=== PATIENT | male | born 1945 | race Caucasian/White ===

== ENCOUNTER → 2018-03-19 12:08 | Outpatient (CLI) | payer OTHER, SELFPAY ==
[2018-03-19 12:33] LABS: Add Manual Diff / Slide Review NO; Basophils Percent Auto 0.3 % (0-2); Hematocrit 43.8 % (41-53); Hemoglobin 14.8 g/dL (13.5-17.5); Lymphocytes Percent Auto 15.1 % (25-40); Mean Corpuscular HGB Conc 33.7 % (30-36); Mean Corpuscular Hemoglobin 29.1 PG (26-34); Mean Corpuscular Volume 86.4 fL (80-100); Monocytes Percent Auto 11.7 % (3-14); Neutrophils Absolute Auto 7700 /uL (3000-5900); Neutrophils Percent Auto 72.9 % (50-75); Platelet Count 167 X10^3/uL (150-400); Red Blood Cell Count 5.07 X10^6/uL (4.5-5.9); Red Cell Distribution Width 13.7 % (11.6-14.8); White Blood Cell Count 10.5 X10^3/uL (4.5-11.0)
[2018-03-19 12:39] LABS: INR 2.8 (0.9-1.3); Prothrombin Time 30.2 SECONDS (10.1-12.7)
[2018-03-19 12:50] LABS: Amylase 75 U/L (30-110); Cholesterol 138 mg/dL (140-199); HDL Cholesterol 77 mg/dL (40-60); LDL Cholesterol Calculated 50 mg/dL (<100); Lipase 73 U/L (23-300); Triglycerides 54 mg/dL (35-150)
[2018-03-19 13:15] LABS: Thyroid Stimulating Hormone 1.15 uIU/mL (0.47-4.68)
[2018-03-19 13:17] LABS: Prostate Specific Antigen Scrn 0.774 ng/mL (0.1-4.0)
[2018-03-19 14:03] LABS: Vitamin D 25 Hydroxy (D3) 24.6 ng/mL (30.0-100.0)
== END ==
PROVIDERS: PCP Family Medicine; Visit Provider Family Medicine
DX: R53.83 Other fatigue (principal); Z79.01 Long term (current) use of anticoagulants; Z95.2 Presence of prosthetic heart valve
CPT/HCPCS: 36415; 80061; 82150; 82306; 83690; 84403; 84443; 85025; 85610; G0103

== ENCOUNTER → 2018-04-05 13:42 | Outpatient (CLI) | payer OTHER, SELFPAY ==
--- NOTE | 2018-04-05 14:56 | PM.TREADMILL ---
Cardiac Stress Test Report Referral & Results Date Patient Seen: 04/05/18 Time Patient Seen: 14:56 Requesting provider: Carlos Arceo Indication: Dyspnea Rest ECG: Unremarkable Procedure Note: Today following both written and verbal informed consent the patient was exercised according to a standard Star protocol patient went for a total of 3 min 5 sec achieving a maximum heart rate of 146 maximum systolic blood pressure of 200. This is approximately 4.6 METS. Exercise was terminated at this point because of inability the patient to go any faster. Patient was also given Cardiolite through a previously started Hep-Lock IV by the nuclear worker technician approximately 1 minute prior to the cessation of exercise. Patient's functional aerobic impairment rated 60% of the sedentary scale so significant deconditioning There are no specific ST-T segment changes with exercise but in recovery there were some minor ST segment flattening in the lateral leads as well as lead 3. No depression was identified. Occasional PVC was identified Impression: Nonspecific ST segment changes that are not likely to be ischemic. Very limited exercise capacity Await t perfusion imaging which will be reported separately. Please note: Actual ECG tracings can be found in the PACS system.
--- NOTE | 2018-04-06 15:23 | DI.NM.S_ITS ---
DATE OF SERVICE: 04/05/2018 PROCEDURE PERFORMED: Exercise treadmill stress and rest myocardial perfusion imaging study with gating to assess ejection fraction and regional wall motion. ORDERING PROVIDER: Carlos Arceo MD INDICATIONS: The patient is a 73-year-old obese male with dyspnea and fatigue. EXERCISE TREADMILL TESTING: The patient was able to exercise for a total of 3 minutes 5 seconds on a standard Star protocol suggesting severely reduced exercise capacity with an GEOVANNA of +55%. He had an accelerated heart rate response to exercise with a resting heart rate of 106 BPM increasing to 133 BPM within 2 minutes of exercise, achieving a maximum heart rate of 146 BPM (99% of his predicted maximum heart rate). He had a mild hypertensive blood pressure response with a resting blood pressure of 122/78 increasing to a maximum of 200/90. He had no chest discomfort but stopped because of dyspnea. His resting ECG shows sinus rhythm with frequent PVCs with some nonspecific ST segment abnormalities. With exercise, he develops 1 mm to 2mm of ST depression, but this is nonspecific because of the baseline abnormalities and hypertensive blood pressure response. His PVCs appear to improve with exercise and there are no concerning arrhythmias. At 2 minutes 1 second of exercise, at a heart rate of 143 BPM, 24.3 mCi of technetium-99 Myoview was injected and the patient was imaged 15 minutes later using a gated SPECT acquisition protocol. He returned the following day and was reinjected with an additional 25.1 mCi of technetium-99 Myoview and was imaged 30 minutes later, again using a gated SPECT acquisition protocol. FINDINGS: 1. RAW DATA: There was fair myocardial tracer uptake. There clearly is significant diaphragmatic attenuation noted. The lung/heart ratio is normal at 0.35 with a normal TID ratio of 0.82. 2. QUANTITATIVE GATED SPECT: Post stress ejection fraction is estimated at 61% without any focal wall motion abnormality, and specifically, the inferior wall appears to have normal distal contractility. Resting ejection fraction is estimated at 62% with mildly increased left ventricular volumes with an end- diastolic volume of 161 mL. 3. MYOCARDIAL PERFUSION IMAGING: Post stress supine images show a fairly normal myocardial perfusion pattern except for a mild perfusion defect in the proximal to mid inferior wall extending slightly to the distal inferior wall. This defect nearly completely resolves on prone imaging, suggestive that it reflects diaphragmatic attenuation. There are no other perfusion defects. The resting images show an identical perfusion pattern without any areas of improvement. CONCLUSION: 1. Probable normal myocardial perfusion study. 2. [id number] fixed inferior perfusion defect that nearly completely resolves on prone imaging, most likely reflecting diaphragmatic attenuation artifact. Previous nontransmural infarction of the inferior wall cannot be entirely excluded, but the absence of any wall motion abnormality in this area mitigates against this. There is no evidence for any significant myocardial ischemia. 3. Normal left ventricular systolic function without focal wall motion abnormality although with mildly increased left ventricular volumes. . 4. Markedly reduced exercise capacity without angina but limiting dyspnea. He had a mild hypertensive blood pressure response to exercise. Resting PVCs resolved with stress and there were no concerning arrhythmias. Shelia Bonilla - /christiano/ doc#: [id number]/job#: [id number] dd: 04/06/2018 12:52:00 dt: 04/06/2018 14:41:00 DICTATING MD/COPIES TO: Tevin Gomez MD; Carlos Arceo MD COPIES MNE: SHAHANA HERRERA
== END ==
PROVIDERS: PCP Family Medicine; Visit Provider Family Medicine
DX: R06.00 Dyspnea, unspecified (principal); R53.83 Other fatigue; E66.9 Obesity, unspecified
CPT/HCPCS: 78452; 93016; 93017; 93018; A9502

== ENCOUNTER → 2018-04-06 09:21 | Outpatient (CLI) | payer OTHER, SELFPAY ==
--- NOTE | 2018-04-06 09:22 | DI.ECHO.S_ITS ---
[facility] +---------+ : : [address] [place] : : : : [id number] : : : : Phone: [phone] Echocardiogram Report + + :Name: MEGAN MARQUEZ Study Date: 04/06/2018 Height: 70 in : :[facility] Weight: 265 lb : : Gender: Male BSA: 2.4 m2 : :: 1945 Age: 73 yrs BP: 108/48 mmHg: :Reason For Study: SOB : : Performed By: Junie Dunne : :Referring: DREAD FRANCO : + + Interpretation Summary The left ventricle is normal in size. There is mild-moderate concentric left ventricular hypertrophy. The ejection fraction is estimated to be 55-60%. The left atrium is mildly dilated. The mitral valve appears rheumatic. There is mild mitral stenosis. There is a mechanical aortic valve. The prosthetic aortic valve is well-seated. The peak aortic velocity is 3.2 m/sec. The aortic valve mean gradient is 20 mmHg. No other echocardiographic abnormalities seen. On review of this gentleman is previous echocardiogram from August 2014 I can see that there are mild rheumatic changes to his mitral valve at that time but without stenosis. 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 The mechanical aortic valve function appears unchanged. Procedure: A two-dimensional transthoracic echocardiogram with color flow and Doppler was performed. The study quality was technically adequate. Comparison is made with the echocardiogram of 08-27-14. The heart rate ranged between 82-93 bpm during the study. Left Ventricle: The left ventricle is normal in size. There is mild-moderate concentric left ventricular hypertrophy. The ejection fraction is estimated to be 55-60%. There are no focal wall motion abnormalities. Diastolic function could not be accurately assessed due to confounding valvular disease. Right Ventricle: The right ventricle is normal in size and function. Atria: The left atrium is mildly dilated. Right atrial size is normal. The interatrial septum is intact with no evidence for an atrial septal defect. Mitral Valve: The mitral valve leaflets appear mildly thickened, but open well. There is slight calcification extending into the subvalvular apparatus. The mitral valve appears rheumatic. There is mild mitral stenosis. There is trace mitral regurgitation. Aortic Valve: The prosthetic aortic valve is well-seated. There is a mechanical aortic valve. The peak aortic velocity is 3.2 m/sec. The peak aortic velocity on the previous exam was 3.4 m/sec. The aortic valve mean gradient is 20 mmHg. No aortic regurgitation is present. Tricuspid Valve: The tricuspid valve is normal in structure and function. There is a trace or physiologic amount of tricuspid regurgitation. The right ventricular systolic pressure is estimated at 19 mmHg assuming a right atrial pressure of 3 mm Hg. Pulmonic Valve: The pulmonic valve is not well visualized. Great Vessels: The aortic root is normal size. The dimensions of the ascending aorta are normal. The IVC is of normal diameter and collapses greater than 50% with a sniff. This suggests a low right atrial pressure of 3 mm Hg. Pericardium/ Pleura There is no pericardial effusion. There is no pleural effusion. MMode/2D Measurements & Calculations LVIDd: 5.4 cm LVOT diam: 1.9 cm LVIDs: 4.0 cm Ao root diam: 3.0 cm FS: 25.4 % Aortic Jxn: 2.0 cm EPSS: 1.0 cm asc Aorta Diam: 2.6 cm IVSd: 1.1 cm LVPWd: 1.3 cm LV gu. diameter/BSA (cm/m^2): 2.3 LV sys. diameter/BSA (cm/m^2): 1.7 LA dimension: 4.7 cm RA long axis: 5.2 cm LA A2 area: 22.3 cm2 RA area: 18.5 cm2 LA A4 area: 23.3 cm2 RA vol: 56.1 ml LA length (vol): 5.8 cm RA : 23.9 ml/m2 LA vol: 76.0 ml IVC diam: 1.4 cm LA vol index: 32.3 ml/m2 RVDd major: 5.7 cm RVD1 (basal): 3.6 cm RVD2 (mid): 3.5 cm Doppler Measurements & Calculations Ao V2 max: 322.0 cm/sec LVOT Max Shalom: 91.4 cm/sec Ao V2 mean: 201.5 cm/sec LV V1 max P.3 mmHg Ao max P.5 mmHg LV V1 VTI: 17.6 cm Ao mean P.8 mmHg RODOLFO(I,D): 0.89 cm2 Ao V2 VTI: 58.1 cm RODOLFO(V,D): 0.84 cm2 sev ratio: 0.30 RODOLFO indexed to BSA (cm^2/m^2): 0.38 MV E max shalom: 129.4 cm/sec TR max shalom: 202.1 cm/sec MV A max shalom: 164.2 cm/sec TR max P.3 mmHg MV E/A: 0.79 PA V2 max: 102.3 cm/sec Lat Peak E' Shalom: 6.7 cm/sec PA V2 mean: 64.7 cm/sec E/E' lat: 19.3 PA mean P.0 mmHg MV dec time: 0.17 sec PA Accel Time: 0.11 sec MV P1/2t: 51.1 msec MV P1/2t max shalom: 129.5 cm/sec MVA(P1/2t): 4.3 cm2 Reading Physician:05:26 PM
== END ==
PROVIDERS: PCP Family Medicine; Visit Provider Family Medicine
DX: I05.0 Rheumatic mitral stenosis (principal); R06.02 Shortness of breath; Z95.2 Presence of prosthetic heart valve
CPT/HCPCS: C8929

== ENCOUNTER → 2018-04-12 07:55 | Outpatient (CLI) | payer OTHER, SELFPAY ==
[2018-04-12 09:41] LABS: BUN Creatinine Ratio 16.4 (6-22); Blood Urea Nitrogen 18 mg/dL (9-20); Calcium 9.6 mg/dL (8.4-10.2); Carbon Dioxide 32 mmol/L (22-32); Chloride 101 mmol/L (98-107); Estimated Glomerular Filt Rate > 60.0 mL/min (>60); Glucose 123 mg/dL (80-110); HEMOLYSIS < 15 (0-50); Potassium 4.8 mmol/L (3.4-5.1); Sodium 141 mmol/L (137-145)
== END ==
PROVIDERS: PCP Family Medicine; Visit Provider Family Medicine
DX: E87.1 Hypo-osmolality and hyponatremia (principal); R79.9 Abnormal finding of blood chemistry, unspecified
CPT/HCPCS: 36415; 80048

== ENCOUNTER 2018-08-05 18:52 | Emergency (ER) | payer OTHER, SELFPAY ==
[2018-08-05 18:58] VITALS: BP 102/63; PULSE 98; RESP 18; TEMP 36.7; O2SAT 95; BMI 38.0
--- NOTE | 2018-08-05 19:30 | ED.EXTPRO ---
HPI - Extremity Problem General Chief complaint: Extremity Problem,Nontraumatic Stated complaint: STATES HAS NO STRENGTH IN ANKLES OR KNEES Time Seen by Provider: 08/05/18 19:13 Source: patient and family Limitations: no limitations History of Present Illness HPI Narrative: This is a 73-year-old male who comes to the emergency department with complaint of bilateral ankle and foot pain. Patient states it has been going on for a couple weeks. Patient states that some of it feels like his Achilles tendon but on both sides. When he crosses his legs and that ankle or tendon he can feel it and it is uncomfortable. He states getting up out of the chair he feels weaker Um and it is painful in when he is trying to walk around he has to hold onto things. He states he feels in his ankle and feet and also has pain. Patient states that he has been sleeping a lot the last 2 weeks because he felt under the weather. He has not had any trauma, he has not had any falls. He does have known back issues and has been seeing Dr. Morales was. He dose to go for injections into his back this month. Patient states that this feels different. He is not having any numbness or tingling. He states he has had a change in his medications and is on trazodone and a new anti depression medication. Patient has not had any fevers, no cold cough or congestion other than feeling stuffy in the middle of the night. No chest pain or shortness of breath no nausea or vomiting and no GI or urinary symptoms. Related Data Previous Rx's Medication Instructions Recorded atorvastatin [Lipitor] 10 mg PO HS #90 tab 12/15/16 pramipexole [Mirapex] 0.125 - 0.25 mg PO HS PRN #60 tab 07/14/17 amlodipine [Norvasc] 5 mg PO QDAY #90 tab 03/27/18 dexamethasone 4 mg tablet 4 mg PO Q8H #12 tab 04/17/18 warfarin 2.5 mg tablet 2.5 mg PO SEE INSTRUCTIONS #120 tab 05/24/18 allopurinol 300 mg tablet 300 mg PO DAILY #90 tab 06/05/18 citalopram 20 mg tablet 20 mg PO DAILY #60 tab 07/10/18 terazosin 2 mg capsule 4 mg PO BEDTIME #90 cap 07/10/18 trazodone 50 mg tablet 100 mg PO BEDTIME PRN #90 tab 07/10/18 temazepam 15 mg capsule 15 mg PO BEDTIME #30 cap 07/12/18 hydrocodone 5 mg-acetaminophen 325 1 - 2 tab PO Q6HP PRN #50 tab 07/30/18 mg tablet hydrocodone-acetaminophen [[place]] 1 tab PO Q6H PRN #10 tab 08/05/18 prednisone See Label Instructions PO PER PKG 08/05/18 DIR #21 each Allergies Allergy/AdvReac Type Severity Reaction Status Date / Time azithromycin [AZITHROMYCIN] Allergy Mild RASH Verified 08/05/18 19:02 lovastatin [LOVASTATIN] Allergy Mild CAUSING Verified 08/05/18 19:02 HIM BREATHING ISSUE oxycodone [OXYCODONE] Allergy Mild RASH Verified 08/05/18 19:02 venlafaxine [VENLAFAXINE] Allergy Mild POSS HIVES Verified 08/05/18 19:02 venom-honey bee Allergy Mild SWELLING Verified 08/05/18 19:02 [BEE VENOM (HONEY BEE)] RT LEG Review of Systems Review of Systems All systems reviewed & are unremarkable except as noted in HPI and below Constitutional Denies chills, Denies fever(s), Denies malaise and Reports weakness ENT Ears, Nose, Mouth, and Throat: Denies disequilibrium Cardiovascular Denies chest pain and Denies dyspnea Respiratory Denies chest congestion, Denies cough and Denies dyspnea Gastrointestinal Gastrointestinal: Denies abdominal pain, Denies constipation, Denies fecal incontinence, Denies diarrhea, Denies nausea and Denies vomiting Genitourinary Denies urinary incontinence Musculoskeletal Reports as per HPI, Reports abnormal gait, Reports back pain (chronic), Reports arthralgias (ankle and feet), Denies joint swelling, Denies limited range of motion, Reports muscle weakness, Denies numbness, Reports stiffness and Denies tingling Integumentary/Breasts Denies rash and Denies skin ulcer Neurologic Reports abnormal gait, Denies numbness, Denies sensory deficit, Denies tingling, Denies disequilibrium and Reports weakness PFSH Medical History Aortic stenosis (Chronic 1996) Chronic back pain (Chronic) Gout (Chronic) Hayfever (Chronic) Hearing loss (Chronic 1989) Hip pain (Chronic) Hypertension (Chronic) Knee pain (Chronic) Low testosterone (Chronic) RLS (restless legs syndrome) (Chronic) Sleep apnea (Chronic 2010) Bladder tumor (Resolved 1989) Chicken pox (Resolved) Congenital heart defect (Resolved 1945) Gastric ulcer (Resolved 1987) Measles (Resolved) Mumps (Resolved) Rheumatic fever (Resolved) Surgical History Anesthesia (Resolved) History of bladder surgery (Resolved 1989) Status post cardiac surgery (Resolved 1996) Social History Smoking Status: Former smoker Exam Narrative Exam Narrative: GEN: Obese, well-appearing male, alert and oriented x 3, patient appears to be in no acute distress. HEENT: Atraumatic, pupils are equal round reactive to light. HEART: Regular rate and rhythm without murmur, clicks, rubs. Pulses are equal in lower extremities LUNGS:Lungs clear to auscultation, no wheezes, rales, crackles, chest moves symmetrically ABD:bowel sounds normal, soft, non-tender, no guarding, rebound, rigidity, no masses noted, no hepatosplenomegaly :No CVA tenderness MSCL: Non-tender to palpation, patient has full range of motion of bilateral lower extremities. He crosses his legs in the room were spontaneously on both sides and points to the Achilles tendon region is being uncomfortable. Patient does not have any significant tenderness with palpation of the Achilles tendon. He has flexion of both feet with palpation of the Achilles tendon were squeeze, the patient does not have any bony tenderness of his lower extremities or feet. There is no redness, there is no swelling, there is no other skin changes or bruising, patient has 5/5 muscle strength, he has 5/5 strength with dorsiflexion and plantar flexion. He has 2+ dorsalis pedis bilaterally. Normal sensation throughout, no muscle atrophy, muscles strength 5/5 upper and lower extremities, full range of motion. NEURO:CN 2-12 intact, sensation normal, reflexes 2/4 patellar bilaterally. heel ernst test normal Initial Vital Signs Initial Vital Signs: Vital Signs Temperature 98.1 F 08/05/18 18:58 Pulse Rate 98 H 08/05/18 18:58 Respiratory Rate 18 08/05/18 18:58 Blood Pressure 102/63 08/05/18 18:58 Pulse Oximetry 95 08/05/18 18:58 Course Orders Ordered: ED Orders 08/05/18 19:35 Complete Blood Count AUTO DIFF Stat Comprehensive Metabolic Panel Stat Creatine Kinase Stat Erythrocyte Sedimentation Rate Stat Prothrombin Time INR Stat 08/05/18 20:40 US renal complete Stat Discontinued Medications Sodium Chloride (Normal Saline 0.9%) 1,000 mls @ 1,000 mls/hr IV BOLUS ONE Stop: 08/05/18 21:39 Last Infusion: 08/05/18 22:16 Dose: 0 mls/hr Admin: 08/05/18 21:01 Dose: 1,000 mls/hr Ketorolac Tromethamine (Toradol) 15 mg IV NOW ONE Stop: 08/05/18 19:29 Last Admin: 08/05/18 19:54 Dose: 15 mg Morphine Sulfate (Morphine) 4 mg IV NOW ONE Stop: 08/05/18 20:41 Last Admin: 08/05/18 21:02 Dose: 4 mg Vital Signs - 8 hr 08/05/18 18:58 08/05/18 20:32 08/05/18 21:30 Temperature 98.1 F Pulse Rate 98 H 84 74 Respiratory Rate 18 18 Blood Pressure 102/63 Blood Pressure [Right Arm] 136/70 137/71 Pulse Oximetry 95 96 94 08/05/18 22:00 Temperature Pulse Rate 70 Respiratory Rate 16 Blood Pressure Blood Pressure [Right Arm] 137/62 Pulse Oximetry 96 MDM - Extremity (Nontraumatic) Lab Data Result diagrams: 08/05/18 19:35 08/05/18 19:35 Lab Results 08/05/18 08/05/18 08/05/18 Range/Units 19:35 19:35 19:35 WBC 8.2 (4.5-11.0) X10^3/uL RBC 4.90 (4.5-5.9) X10^6/uL Hgb 14.2 (13.5-17.5) g/dL Hct 42.9 (41-53) % MCV 87.6 (80-100) fL MCH 29.1 (26-34) PG MCHC 33.2 (30-36) % RDW 12.8 (11.6-14.8) % Plt Count 186 (150-400) X10^3/uL Neut % (Auto) 73.5 (50-75) % Lymph % (Auto) 11.0 L (25-40) % Garden % (Auto) 14.5 H (3-14) % Eos % (Auto) 0.5 L (2-4) % Baso % (Auto) 0.5 (0-2) % Neut # (Auto) 6100 H (2160-6309) /uL ESR 25 H (0-15) MM/HR PT 40.1 H (10.1-12.7) SECONDS INR 3.6 H (0.9-1.3) Sodium 142 (137-145) mmol/L Potassium 4.1 (3.4-5.1) mmol/L Chloride 103 (98-107) mmol/L Carbon Dioxide 27 (22-32) mmol/L BUN 24 H (9-20) mg/dL Creatinine 1.50 H (0.66-1.25) mg/dL Estimated GFR 46.0 L (>60) mL/min BUN/Creatinine Ratio 16.0 (6-22) Glucose 131 H (80-110) mg/dL Calcium 9.0 (8.4-10.2) mg/dL Total Bilirubin 0.4 (0.2-1.3) mg/dL AST 22 (17-59) IU/L ALT 22 (21-72) IU/L Alkaline Phosphatase 64 (38-126) U/L Total Creatine Kinase (55-170) U/L Total Protein 7.5 (6.3-8.2) g/dL Albumin 4.3 (3.5-5.0) g/dL Globulin 3.2 (1.7-4.1) g/dL Albumin/Globulin Ratio 1.3 (1.0-2.8) 08/05/18 Range/Units 19:35 WBC (4.5-11.0) X10^3/uL RBC (4.5-5.9) X10^6/uL Hgb (13.5-17.5) g/dL Hct (41-53) % MCV (80-100) fL MCH (26-34) PG MCHC (30-36) % RDW (11.6-14.8) % Plt Count (150-400) X10^3/uL Neut % (Auto) (50-75) % Lymph % (Auto) (25-40) % Garden % (Auto) (3-14) % Eos % (Auto) (2-4) % Baso % (Auto) (0-2) % Neut # (Auto) (3854-7272) /uL ESR (0-15) MM/HR PT (10.1-12.7) SECONDS INR (0.9-1.3) Sodium (137-145) mmol/L Potassium (3.4-5.1) mmol/L Chloride (98-107) mmol/L Carbon Dioxide (22-32) mmol/L BUN (9-20) mg/dL Creatinine (0.66-1.25) mg/dL Estimated GFR (>60) mL/min BUN/Creatinine Ratio (6-22) Glucose (80-110) mg/dL Calcium (8.4-10.2) mg/dL Total Bilirubin (0.2-1.3) mg/dL AST (17-59) IU/L ALT (21-72) IU/L Alkaline Phosphatase (38-126) U/L Total Creatine Kinase 99 (55-170) U/L Total Protein (6.3-8.2) g/dL Albumin (3.5-5.0) g/dL Globulin (1.7-4.1) g/dL Albumin/Globulin Ratio (1.0-2.8) Imaging Data Renal US: Radiologist's impression: prelim-b/l simple renal [place] [address] Ultrasound Report Signed Patient: Shelia Bonilla R#: [id number] : 6Acct:[id number] Age/Sex: 73 / MDate of Service: 08/05/18 Loc: ED Accession Number: [id number] Procedure: US renal complete Ordering Provider: Liv Martinez D.O. PROCEDURE: US RENAL COMPLETE INDICATIONS: DECREASED CREATININE; MYALGIAS TECHNIQUE: Real-time scanning was performed of the kidneys and bladder, with image documentation. COMPARISON: [facility], US, CAROTID ARTERY DOPPLER BILAT, 10/21/2015, 8:34. [facility], US, ABDOMEN COMPLETE, 09/16/2011, 12:18. FINDINGS: Kidneys: Kidneys are normal in size. Right kidney measures 14.3 cm long (but is over measured as the measurement includes a large right renal cyst); left kidney measures 10.4 cm long. Right renal cortical thickness is 1.5 cm; left renal cortical thickness is 1.6 cm. Renal cortical echotexture is normal. No hydronephrosis or nephrolithiasis. No suspicious solid mass lesions. There is a 5.9 cm left renal cyst and a 7.5 cm right renal cyst. Bladder: Could not be evaluated due to inadequate distention. Miscellaneous: No free pelvic fluid. IMPRESSION: No hydronephrosis or nephrolithiasis bilaterally. Large bilateral renal cysts, measuring up to 7.5 cm on the right and 5.9 cm on the left. Dictated by: Delvin Pringle M.D. on 08/05/2018 at 22:08 Approved by: Delvin Pringle M.D. on 08/05/2018 at 22:13 MDM Narrative Medical decision making narrative: Patient has felt under the weather recently. Plan did check some basic labs to make sure does not have any electrolyte abnormalities, he does take Coumadin so INR was ordered. As well as renal function. Patient also had an ESR ordered for potential arthralgias or autoimmune causes. Patient does not have any bony tenderness so no imaging of the ankle or feet were ordered. I did review some recent imaging and labs and he has a lipoma Paolo lumbar stenosis. Patient is not having other signs and symptoms such as numbness or tingling, it is only in the feet and ankles and not really the upper legs or thighs, he is not having any saddle anesthesia, urinary issues had that make me more suspicious for a radiculopathy. Patient's renal function is elevated from last visit, he also has slightly elevated BUN. He states he has not really been drinking any water in's and out's last week and a half because of his pain so he has been getting up and down. Will give him a L of fluids, plan to get an ultrasound as he has a history of BPH make sure does not have any obstruction that is causing. He does not have follow-up until the when he has a doctor's appointment. Will give a dose of pain medication here, check a urine to check for any protein. Patient also has a history of gout although he states usually just in his big toe although it feels somewhat similar. Patient encouraged to increase hydration. Continue home medications for pain and followup with PCP. Asked to call for earlier appointment. Patient aware of cysts on kidneys. Discussed potential for tendinopathy and no jumping, running, large stressors on feet/tendons. Discharge Plan Departure Patient Disposition: Home Clinical Impression: Bilateral lower extremity pain Discharge Date/Time: 08/05/18 22:19 Interventions: ED Discharge Assessment Last Done: 08/05/18 22:19 Activity Restrictions/Additional Instructions: Follow-up with your primary care physician, called to see if you can move your appointment to a sooner date from the 22 of August. Your renal function is decreased from your last lab work in March. US shows bilateral renal cysts but these are not likely the cause of your symptoms. Your physician will wish to follow your renal function with labs. Discuss with your physician this and your symptoms today. Continue medications as prescribed. This medication can sometimes affect warfarin levels. Your physician may wish to monitor them more closely. You do need to be drinking water regularly, you need to increase her oral intake to 7-8, 8 oz glasses daily. Prescriptions: New prednisone 10 mg tablets,dose pack See Label Instructions PO PER PKG DIR Qty: 21 RF: 0 hydrocodone-acetaminophen [[place]] 10-325 mg tablet 1 tab PO Q6H PRN (Reason: pain) Qty: 10 RF: 0 No Action atorvastatin [Lipitor] 10 MG tablet 10 mg PO HS Qty: 90 RF: 3 pramipexole [Mirapex] 0.125 MG tablet 0.125 - 0.25 mg PO HS PRNQty: 60 RF: 3 amlodipine [Norvasc] 5 mg tablet 5 mg PO QDAY Qty: 90 RF: 3 warfarin [Coumadin] 2.5 mg tablet 2.5 mg PO SEE INSTRUCTIONS Qty: 120 RF: 1 allopurinol 300 mg tablet 300 mg PO DAILY Qty: 90 RF: 1 temazepam 15 mg capsule 15 mg PO BEDTIME Qty: 30 RF: 1 hydrocodone-acetaminophen [[place]] 5-325 mg tablet 1 - 2 tab PO Q6HP PRN (Reason: pain) Qty: 50 RF: 0 dexamethasone 4 mg tablet 4 mg PO Q8H Qty: 12 RF: 0 terazosin 2 mg capsule 4 mg PO BEDTIME Qty: 90 RF: 3 trazodone 50 mg tablet 100 mg PO BEDTIME PRN (Reason: insomnia) Qty: 90 RF: 5 citalopram 20 mg tablet 20 mg PO DAILY Qty: 60 RF: 3 Referrals: Carlos Arceo MD [Primary Care Provider] -
--- NOTE | 2018-08-05 19:33 | ED_ITS ---
HPI - Extremity Problem General Chief complaint: Extremity Problem,Nontraumatic Stated complaint: STATES HAS NO STRENGTH IN ANKLES OR KNEES Time Seen by Provider: 08/05/18 19:13 Source: patient and family Limitations: no limitations History of Present Illness HPI Narrative: This is a 73-year-old male who comes to the emergency department with complaint of bilateral ankle and foot pain. Patient states it has been going on for a couple weeks. Patient states that some of it feels like his Achilles tendon but on both sides. When he crosses his legs and that ankle or tendon he can feel it and it is uncomfortable. He states getting up out of the chair he feels weaker Um and it is painful in when he is trying to walk around he has to hold onto things. He states he feels in his ankle and feet and also has pain. Patient states that he has been sleeping a lot the last 2 weeks because he felt under the weather. He has not had any trauma, he has not had any falls. He does have known back issues and has been seeing Dr. Morales was. He dose to go for injections into his back this month. Patient states that this feels different. He is not having any numbness or tingling. He states he has had a change in his medications and is on trazodone and a new anti depression medication. Patient has not had any fevers, no cold cough or congestion other than feeling stuffy in the middle of the night. No chest pain or shortness of breath no nausea or vomiting and no GI or urinary symptoms. Related Data Previous Rx's Medication Instructions Recorded atorvastatin [Lipitor] 10 mg PO HS #90 tab 12/15/16 pramipexole [Mirapex] 0.125 - 0.25 mg PO HS PRN #60 tab 07/14/17 amlodipine [Norvasc] 5 mg PO QDAY #90 tab 03/27/18 dexamethasone 4 mg tablet 4 mg PO Q8H #12 tab 04/17/18 warfarin 2.5 mg tablet 2.5 mg PO SEE INSTRUCTIONS #120 tab 05/24/18 allopurinol 300 mg tablet 300 mg PO DAILY #90 tab 06/05/18 citalopram 20 mg tablet 20 mg PO DAILY #60 tab 07/10/18 terazosin 2 mg capsule 4 mg PO BEDTIME #90 cap 07/10/18 trazodone 50 mg tablet 100 mg PO BEDTIME PRN #90 tab 07/10/18 temazepam 15 mg capsule 15 mg PO BEDTIME #30 cap 07/12/18 hydrocodone 5 mg-acetaminophen 325 1 - 2 tab PO Q6HP PRN #50 tab 07/30/18 mg tablet hydrocodone-acetaminophen [Cheriton] 1 tab PO Q6H PRN #10 tab 08/05/18 prednisone See Label Instructions PO PER PKG 08/05/18 DIR #21 each Allergies Allergy/AdvReac Type Severity Reaction Status Date / Time azithromycin [AZITHROMYCIN] Allergy Mild RASH Verified 08/05/18 19:02 lovastatin [LOVASTATIN] Allergy Mild CAUSING Verified 08/05/18 19:02 HIM BREATHING ISSUE oxycodone [OXYCODONE] Allergy Mild RASH Verified 08/05/18 19:02 venlafaxine [VENLAFAXINE] Allergy Mild POSS HIVES Verified 08/05/18 19:02 venom-honey bee Allergy Mild SWELLING Verified 08/05/18 19:02 [BEE VENOM (HONEY BEE)] RT LEG Review of Systems Review of Systems All systems reviewed & are unremarkable except as noted in HPI and below Constitutional Denies chills, Denies fever(s), Denies malaise and Reports weakness ENT Ears, Nose, Mouth, and Throat: Denies disequilibrium Cardiovascular Denies chest pain and Denies dyspnea Respiratory Denies chest congestion, Denies cough and Denies dyspnea Gastrointestinal Gastrointestinal: Denies abdominal pain, Denies constipation, Denies fecal incontinence, Denies diarrhea, Denies nausea and Denies vomiting Genitourinary Denies urinary incontinence Musculoskeletal Reports as per HPI, Reports abnormal gait, Reports back pain (chronic), Reports arthralgias (ankle and feet), Denies joint swelling, Denies limited range of motion, Reports muscle weakness, Denies numbness, Reports stiffness and Denies tingling Integumentary/Breasts Denies rash and Denies skin ulcer Neurologic Reports abnormal gait, Denies numbness, Denies sensory deficit, Denies tingling , Denies disequilibrium and Reports weakness PFSH Medical History Aortic stenosis (Chronic 1996) Chronic back pain (Chronic) Gout (Chronic) Hayfever (Chronic) Hearing loss (Chronic 1989) Hip pain (Chronic) Hypertension (Chronic) Knee pain (Chronic) Low testosterone (Chronic) RLS (restless legs syndrome) (Chronic) Sleep apnea (Chronic 2010) Bladder tumor (Resolved 1989) Chicken pox (Resolved) Congenital heart defect (Resolved 1945) Gastric ulcer (Resolved 1987) Measles (Resolved) Mumps (Resolved) Rheumatic fever (Resolved) Surgical History Anesthesia (Resolved) History of bladder surgery (Resolved 1989) Status post cardiac surgery (Resolved 1996) Social History Smoking Status: Former smoker Exam Narrative Exam Narrative: GEN: Obese, well-appearing male, alert and oriented x 3, patient appears to be in no acute distress. HEENT: Atraumatic, pupils are equal round reactive to light. HEART: Regular rate and rhythm without murmur, clicks, rubs. Pulses are equal in lower extremities LUNGS:Lungs clear to auscultation, no wheezes, rales, crackles, chest moves symmetrically ABD:bowel sounds normal, soft, non-tender, no guarding, rebound, rigidity, no masses noted, no hepatosplenomegaly :No CVA tenderness MSCL: Non-tender to palpation, patient has full range of motion of bilateral lower extremities. He crosses his legs in the room were spontaneously on both sides and points to the Achilles tendon region is being uncomfortable. Patient does not have any significant tenderness with palpation of the Achilles tendon. He has flexion of both feet with palpation of the Achilles tendon were squeeze , the patient does not have any bony tenderness of his lower extremities or feet. There is no redness, there is no swelling, there is no other skin changes or bruising, patient has 5/5 muscle strength, he has 5/5 strength with dorsiflexion and plantar flexion. He has 2+ dorsalis pedis bilaterally. Normal sensation throughout, no muscle atrophy, muscles strength 5/5 upper and lower extremities, full range of motion. NEURO:CN 2-12 intact, sensation normal, reflexes 2/4 patellar bilaterally. heel ernst test normal Initial Vital Signs Initial Vital Signs: Vital Signs Temperature 98.1 F 08/05/18 18:58 Pulse Rate 98 H 08/05/18 18:58 Respiratory Rate 18 08/05/18 18:58 Blood Pressure 102/63 08/05/18 18:58 Pulse Oximetry 95 08/05/18 18:58 Course Orders Ordered: ED Orders 08/05/18 19:35 Complete Blood Count AUTO DIFF Stat Comprehensive Metabolic Panel Stat Creatine Kinase Stat Erythrocyte Sedimentation Rate Stat Prothrombin Time INR Stat 08/05/18 20:40 US renal complete Stat Discontinued Medications Sodium Chloride (Normal Saline 0.9%) 1,000 mls @ 1,000 mls/hr IV BOLUS ONE Stop: 08/05/18 21:39 Last Infusion: 08/05/18 22:16 Dose: 0 mls/hr Admin: 08/05/18 21:01 Dose: 1,000 mls/hr Ketorolac Tromethamine (Toradol) 15 mg IV NOW ONE Stop: 08/05/18 19:29 Last Admin: 08/05/18 19:54 Dose: 15 mg Morphine Sulfate (Morphine) 4 mg IV NOW ONE Stop: 08/05/18 20:41 Last Admin: 08/05/18 21:02 Dose: 4 mg Vital Signs - 8 hr 08/05/18 18:58 08/05/18 20:32 08/05/18 21:30 Temperature 98.1 F Pulse Rate 98 H 84 74 Respiratory Rate 18 18 Blood Pressure 102/63 Blood Pressure [Right Arm] 136/70 137/71 Pulse Oximetry 95 96 94 08/05/18 22:00 Temperature Pulse Rate 70 Respiratory Rate 16 Blood Pressure Blood Pressure [Right Arm] 137/62 Pulse Oximetry 96 MDM - Extremity (Nontraumatic) Lab Data Result diagrams: 08/05/18 19:35 08/05/18 19:35 Lab Results 08/05/18 08/05/18 08/05/18 Range/Units 19:35 19:35 19:35 WBC 8.2 (4.5-11.0) X10^3/uL RBC 4.90 (4.5-5.9) X10^6/uL Hgb 14.2 (13.5-17.5) g/dL Hct 42.9 (41-53) % MCV 87.6 (80-100) fL MCH 29.1 (26-34) PG MCHC 33.2 (30-36) % RDW 12.8 (11.6-14.8) % Plt Count 186 (150-400) X10^3/uL Neut % (Auto) 73.5 (50-75) % Lymph % (Auto) 11.0 L (25-40) % Overton % (Auto) 14.5 H (3-14) % Eos % (Auto) 0.5 L (2-4) % Baso % (Auto) 0.5 (0-2) % Neut # (Auto) 6100 H (0031-4516) /uL ESR 25 H (0-15) MM/HR PT 40.1 H (10.1-12.7) SECONDS INR 3.6 H (0.9-1.3) Sodium 142 (137-145) mmol/L Potassium 4.1 (3.4-5.1) mmol/L Chloride 103 (98-107) mmol/L Carbon Dioxide 27 (22-32) mmol/L BUN 24 H (9-20) mg/dL Creatinine 1.50 H (0.66-1.25) mg/dL Estimated GFR 46.0 L (>60) mL/min BUN/Creatinine Ratio 16.0 (6-22) Glucose 131 H (80-110) mg/dL Calcium 9.0 (8.4-10.2) mg/dL Total Bilirubin 0.4 (0.2-1.3) mg/dL AST 22 (17-59) IU/L ALT 22 (21-72) IU/L Alkaline Phosphatase 64 (38-126) U/L Total Creatine Kinase (55-170) U/L Total Protein 7.5 (6.3-8.2) g/dL Albumin 4.3 (3.5-5.0) g/dL Globulin 3.2 (1.7-4.1) g/dL Albumin/Globulin Ratio 1.3 (1.0-2.8) 08/05/18 Range/Units 19:35 WBC (4.5-11.0) X10^3/uL RBC (4.5-5.9) X10^6/uL Hgb (13.5-17.5) g/dL Hct (41-53) % MCV (80-100) fL MCH (26-34) PG MCHC (30-36) % RDW (11.6-14.8) % Plt Count (150-400) X10^3/uL Neut % (Auto) (50-75) % Lymph % (Auto) (25-40) % Overton % (Auto) (3-14) % Eos % (Auto) (2-4) % Baso % (Auto) (0-2) % Neut # (Auto) (8750-8375) /uL ESR (0-15) MM/HR PT (10.1-12.7) SECONDS INR (0.9-1.3) Sodium (137-145) mmol/L Potassium (3.4-5.1) mmol/L Chloride (98-107) mmol/L Carbon Dioxide (22-32) mmol/L BUN (9-20) mg/dL Creatinine (0.66-1.25) mg/dL Estimated GFR (>60) mL/min BUN/Creatinine Ratio (6-22) Glucose (80-110) mg/dL Calcium (8.4-10.2) mg/dL Total Bilirubin (0.2-1.3) mg/dL AST (17-59) IU/L ALT (21-72) IU/L Alkaline Phosphatase (38-126) U/L Total Creatine Kinase 99 (55-170) U/L Total Protein (6.3-8.2) g/dL Albumin (3.5-5.0) g/dL Globulin (1.7-4.1) g/dL Albumin/Globulin Ratio (1.0-2.8) Imaging Data Renal US: Radiologist's impression: prelim-b/l simple renal [place] [address] Ultrasound Report Signed Patient: Shelia Bonilla R#: [id number] : 6Acct:[id number] Age/Sex: 73 / MDate of Service: 08/05/18 Loc: ED Accession Number: [id number] Procedure: US renal complete Ordering Provider: Liv Martinez D.O. PROCEDURE: US RENAL COMPLETE INDICATIONS: DECREASED CREATININE; MYALGIAS TECHNIQUE: Real-time scanning was performed of the kidneys and bladder, with image documentation. COMPARISON: [facility], US, CAROTID ARTERY DOPPLER BILAT, 10/21/2015, 8: 34. [facility], US, ABDOMEN COMPLETE, 09/16/2011, 12:18. FINDINGS: Kidneys: Kidneys are normal in size. Right kidney measures 14.3 cm long (but is over measured as the measurement includes a large right renal cyst); left kidney measures 10.4 cm long. Right renal cortical thickness is 1.5 cm; left renal cortical thickness is 1.6 cm. Renal cortical echotexture is normal. No hydronephrosis or nephrolithiasis. No suspicious solid mass lesions. There is a 5.9 cm left renal cyst and a 7.5 cm right renal cyst. Bladder: Could not be evaluated due to inadequate distention. Miscellaneous: No free pelvic fluid. IMPRESSION: No hydronephrosis or nephrolithiasis bilaterally. Large bilateral renal cysts, measuring up to 7.5 cm on the right and 5.9 cm on the left. Dictated by: Delvin Pringle M.D. on 08/05/2018 at 22:08 Approved by: Delvin Pringle M.D. on 08/05/2018 at 22:13 MDM Narrative Medical decision making narrative: Patient has felt under the weather recently. Plan did check some basic labs to make sure does not have any electrolyte abnormalities, he does take Coumadin so INR was ordered. As well as renal function. Patient also had an ESR ordered for potential arthralgias or autoimmune causes. Patient does not have any bony tenderness so no imaging of the ankle or feet were ordered. I did review some recent imaging and labs and he has a lipoma Paolo lumbar stenosis. Patient is not having other signs and symptoms such as numbness or tingling, it is only in the feet and ankles and not really the upper legs or thighs, he is not having any saddle anesthesia, urinary issues had that make me more suspicious for a radiculopathy. Patient's renal function is elevated from last visit, he also has slightly elevated BUN. He states he has not really been drinking any water in's and out' s last week and a half because of his pain so he has been getting up and down. Will give him a L of fluids, plan to get an ultrasound as he has a history of BPH make sure does not have any obstruction that is causing. He does not have follow-up until the when he has a doctor's appointment. Will give a dose of pain medication here, check a urine to check for any protein. Patient also has a history of gout although he states usually just in his big toe although it feels somewhat similar. Patient encouraged to increase hydration. Continue home medications for pain and followup with PCP. Asked to call for earlier appointment. Patient aware of cysts on kidneys. Discussed potential for tendinopathy and no jumping, running, large stressors on feet/tendons. Discharge Plan Departure Patient Disposition: Home Clinical Impression: Bilateral lower extremity pain Discharge Date/Time: 08/05/18 22:19 Interventions: ED Discharge Assessment Last Done: 08/05/18 22:19 Activity Restrictions/Additional Instructions: Follow-up with your primary care physician, called to see if you can move your appointment to a sooner date from the 22 of August. Your renal function is decreased from your last lab work in March. US shows bilateral renal cysts but these are not likely the cause of your symptoms. Your physician will wish to follow your renal function with labs. Discuss with your physician this and your symptoms today. Continue medications as prescribed. This medication can sometimes affect warfarin levels. Your physician may wish to monitor them more closely. You do need to be drinking water regularly, you need to increase her oral intake to 7-8, 8 oz glasses daily. Prescriptions: New prednisone 10 mg tablets,dose pack See Label Instructions PO PER PKG DIR Qty: 21 RF: 0 hydrocodone-acetaminophen [Cheriton] 10-325 mg tablet 1 tab PO Q6H PRN (Reason: pain) Qty: 10 RF: 0 No Action atorvastatin [Lipitor] 10 MG tablet 10 mg PO HS Qty: 90 RF: 3 pramipexole [Mirapex] 0.125 MG tablet 0.125 - 0.25 mg PO HS PRNQty: 60 RF: 3 amlodipine [Norvasc] 5 mg tablet 5 mg PO QDAY Qty: 90 RF: 3 warfarin [Coumadin] 2.5 mg tablet 2.5 mg PO SEE INSTRUCTIONS Qty: 120 RF: 1 allopurinol 300 mg tablet 300 mg PO DAILY Qty: 90 RF: 1 temazepam 15 mg capsule 15 mg PO BEDTIME Qty: 30 RF: 1 hydrocodone-acetaminophen [Cheriton] 5-325 mg tablet 1 - 2 tab PO Q6HP PRN (Reason: pain) Qty: 50 RF: 0 dexamethasone 4 mg tablet 4 mg PO Q8H Qty: 12 RF: 0 terazosin 2 mg capsule 4 mg PO BEDTIME Qty: 90 RF: 3 trazodone 50 mg tablet 100 mg PO BEDTIME PRN (Reason: insomnia) Qty: 90 RF: 5 citalopram 20 mg tablet 20 mg PO DAILY Qty: 60 RF: 3 Referrals: Carlos Arceo MD [Primary Care Provider] -
[2018-08-05 19:45] LABS: Add Manual Diff / Slide Review NO; Basophils Percent Auto 0.5 % (0-2); Eosinophils Percent Auto 0.5 % (2-4); Hematocrit 42.9 % (41-53); Hemoglobin 14.2 g/dL (13.5-17.5); Mean Corpuscular HGB Conc 33.2 % (30-36); Mean Corpuscular Hemoglobin 29.1 PG (26-34); Mean Corpuscular Volume 87.6 fL (80-100); Monocytes Percent Auto 14.5 % (3-14); Neutrophils Absolute Auto 6100 /uL (3000-5900); Neutrophils Percent Auto 73.5 % (50-75); Platelet Count 186 X10^3/uL (150-400); Red Cell Distribution Width 12.8 % (11.6-14.8); White Blood Cell Count 8.2 X10^3/uL (4.5-11.0)
[2018-08-05 19:52] LABS: INR 3.6 (0.9-1.3); Prothrombin Time 40.1 SECONDS (10.1-12.7)
[2018-08-05] MEDS: KETOROLAC 60 MG/2 ML VIAL 15 MG IV (19:54)
[2018-08-05 19:56] LABS: Alanine Aminotransferase 22 IU/L (21-72); Albumin 4.3 g/dL (3.5-5.0); Albumin Globulin Ratio 1.3 (1.0-2.8); Alkaline Phosphatase 64 U/L (38-126); Aspartate Aminotransferase 22 IU/L (17-59); Bilirubin Total 0.4 mg/dL (0.2-1.3); Blood Urea Nitrogen 24 mg/dL (9-20); Carbon Dioxide 27 mmol/L (22-32); Chloride 103 mmol/L (98-107); Globulin 3.2 g/dL (1.7-4.1); Glucose 131 mg/dL (80-110); HEMOLYSIS < 15 (0-50); Potassium 4.1 mmol/L (3.4-5.1); Sodium 142 mmol/L (137-145); Total Protein 7.5 g/dL (6.3-8.2)
[2018-08-05 20:08] LABS: Erythrocyte Sedimentation Rate 25 MM/HR (0-15)
[2018-08-05 20:10] LABS: Creatine Kinase 99 U/L (55-170)
[2018-08-05 20:32] VITALS: BP 136/70; PULSE 84; RESP 18; O2SAT 96
--- NOTE | 2018-08-05 20:40 | DI.US.S_ITS ---
PROCEDURE: US RENAL COMPLETE INDICATIONS: DECREASED CREATININE; MYALGIAS TECHNIQUE: Real-time scanning was performed of the kidneys and bladder, with image documentation. COMPARISON: [facility], US, CAROTID ARTERY DOPPLER BILAT, 10/21/2015, 8:34. [facility], US, ABDOMEN COMPLETE, 09/16/2011, 12:18. FINDINGS: Kidneys: Kidneys are normal in size. Right kidney measures 14.3 cm long (but is over measured as the measurement includes a large right renal cyst); left kidney measures 10.4 cm long. Right renal cortical thickness is 1.5 cm; left renal cortical thickness is 1.6 cm. Renal cortical echotexture is normal. No hydronephrosis or nephrolithiasis. No suspicious solid mass lesions. There is a 5.9 cm left renal cyst and a 7.5 cm right renal cyst. Bladder: Could not be evaluated due to inadequate distention. Miscellaneous: No free pelvic fluid. IMPRESSION: No hydronephrosis or nephrolithiasis bilaterally. Large bilateral renal cysts, measuring up to 7.5 cm on the right and 5.9 cm on the left. Dictated by: Delvin Pringle M.D. on 08/05/2018 at 22:08 Approved by: Delvin Pringle M.D. on 08/05/2018 at 22:13
[2018-08-05] MEDS: SODIUM CHLORIDE 0.9% 1,000 ML 1000 ML IV (21:01)
[2018-08-05] MEDS: MORPHINE 4 MG/ML INJ IV (21:02)
[2018-08-05 21:30] VITALS: BP 137/71; PULSE 74; O2SAT 94
[2018-08-05 22:00] VITALS: BP 137/62; PULSE 70; RESP 16; O2SAT 96
== END 2018-08-05 22:19 | disposition home or self-care (01) ==
PROVIDERS: Emergency Provider Emergency Medicine; PCP Family Medicine
DX: M79.604 Pain in right leg (principal); M79.605 Pain in left leg
CPT/HCPCS: 36591; 76770; 80053; 82550; 85025; 85610; 85651; 96361; 96374; 96375; 99283; 99284; J1885; J2270

== ENCOUNTER → 2018-08-08 12:52 | Outpatient (CLI) | payer OTHER, SELFPAY ==
[2018-08-08 13:57] LABS: INR 2.8 (0.9-1.3); Prothrombin Time 30.9 SECONDS (10.1-12.7)
== END ==
PROVIDERS: PCP Family Medicine; Visit Provider Family Medicine
DX: Z95.2 Presence of prosthetic heart valve (principal)
CPT/HCPCS: 36415; 85610

== ENCOUNTER → 2018-08-22 12:49 | Outpatient (CLI) | payer OTHER, SELFPAY ==
[2018-08-22 13:58] LABS: INR 1.9 (0.9-1.3); Prothrombin Time 20.8 SECONDS (10.1-12.7)
[2018-08-22 14:05] LABS: Blood Urea Nitrogen 19 mg/dL (9-20); Calcium 9.6 mg/dL (8.4-10.2); Carbon Dioxide 25 mmol/L (22-32); Chloride 100 mmol/L (98-107); Estimated Glomerular Filt Rate > 60.0 mL/min (>60); Glucose 111 mg/dL (80-110); HEMOLYSIS < 15 (0-50); Potassium 4.6 mmol/L (3.4-5.1); Sodium 140 mmol/L (137-145)
[2018-08-22 14:13] LABS: Add Manual Diff / Slide Review NO; Basophils Percent Auto 0.3 % (0-2); Eosinophils Percent Auto 0.9 % (2-4); Hematocrit 42.8 % (41-53); Hemoglobin 14.4 g/dL (13.5-17.5); Lymphocytes Percent Auto 18.5 % (25-40); Mean Corpuscular HGB Conc 33.7 % (30-36); Mean Corpuscular Hemoglobin 29.2 PG (26-34); Mean Corpuscular Volume 86.5 fL (80-100); Monocytes Percent Auto 12.1 % (3-14); Neutrophils Absolute Auto 4100 /uL (3000-5900); Neutrophils Percent Auto 68.2 % (50-75); Platelet Count 175 X10^3/uL (150-400); Red Blood Cell Count 4.95 X10^6/uL (4.5-5.9); Red Cell Distribution Width 13.2 % (11.6-14.8)
== END ==
PROVIDERS: PCP Family Medicine; Visit Provider Family Medicine
DX: Z79.01 Long term (current) use of anticoagulants (principal); Z95.2 Presence of prosthetic heart valve; M54.5 Low back pain
CPT/HCPCS: 36415; 80048; 85025; 85610

== ENCOUNTER → 2018-10-10 12:28 | Outpatient (CLI) | payer OTHER, SELFPAY ==
[2018-10-10 13:13] LABS: INR 1.6 (0.9-1.3); Prothrombin Time 19.2 SECONDS (10.1-12.7)
[2018-10-10 13:25] LABS: Hemoglobin A1C% w Est Avg Glu 5.5 % (4.0-6.0)
[2018-10-10 14:16] LABS: Cholesterol 224 mg/dL (140-199); HDL Cholesterol 57 mg/dL (40-60); LDL Cholesterol Calculated 136 mg/dL (<100); Triglycerides 155 mg/dL (35-150)
== END ==
PROVIDERS: PCP Family Medicine; Visit Provider Family Medicine
DX: Z79.01 Long term (current) use of anticoagulants (principal); Z95.2 Presence of prosthetic heart valve; E78.2 Mixed hyperlipidemia; R73.09 Other abnormal glucose
CPT/HCPCS: 36415; 80061; 83036; 85610

== ENCOUNTER → 2019-06-12 11:17 | Outpatient (CLI) | payer OTHER, SELFPAY ==
[2019-06-12 12:26] LABS: INR 2.2 (0.9-1.3); Prothrombin Time 25.8 SECONDS (10.1-12.7)
== END ==
PROVIDERS: PCP Family Medicine; Visit Provider Family Medicine
DX: Z79.01 Long term (current) use of anticoagulants (principal)
CPT/HCPCS: 36415; 85610

== ENCOUNTER → 2019-08-21 12:33 | Outpatient (CLI) | payer OTHER, SELFPAY ==
[2019-08-21 12:51] LABS: Add Manual Diff / Slide Review NO; Basophils Absolute Auto 0 /uL (0-100); Basophils Percent Auto 0.3 % (0-2); Eosinophils Absolute Auto 100 /uL (0-450); Eosinophils Percent Auto 1.6 % (2-4); Hematocrit 46.2 % (41-53); Hemoglobin 15.8 g/dL (13.5-17.5); Lymphocytes Absolute Auto 1900 /uL (1100-4500); Lymphocytes Percent Auto 22.9 % (25-40); Mean Corpuscular HGB Conc 34.3 % (30-36); Mean Corpuscular Hemoglobin 29.9 PG (26-34); Mean Corpuscular Volume 87.3 fL (80-100); Monocytes Absolute Auto 1000 /uL (0-900); Monocytes Percent Auto 11.5 % (3-14); Neutrophils Absolute Auto 5300 /uL (1500-7000); Neutrophils Percent Auto 63.7 % (50-75); Platelet Count 175 X10^3/uL (150-400); Red Blood Cell Count 5.29 X10^6/uL (4.5-5.9); Red Cell Distribution Width 13.3 % (11.6-14.8); White Blood Cell Count 8.3 X10^3/uL (4.5-11.0)
[2019-08-21 13:06] LABS: Alanine Aminotransferase 42 IU/L (<50); Albumin 4.9 g/dL (3.5-5.0); Albumin Globulin Ratio 1.5 (1.0-2.8); Alkaline Phosphatase 74 U/L (38-126); Aspartate Aminotransferase 47 IU/L (17-59); BUN Creatinine Ratio 15.8 (6-22); Bilirubin Total 0.5 mg/dL (0.2-1.3); Blood Urea Nitrogen 19 mg/dL (9-20); Calcium 9.9 mg/dL (8.4-10.2); Carbon Dioxide 31 mmol/L (22-32); Chloride 101 mmol/L (98-107); Cholesterol 180 mg/dL (140-199); Estimated Glomerular Filt Rate 59.3 mL/min (>60); Globulin 3.3 g/dL (1.7-4.1); Glucose 116 mg/dL (80-110); HDL Cholesterol 54 mg/dL (40-60); HEMOLYSIS < 15 (0-50); LDL Cholesterol Calculated 91 mg/dL (<100); Potassium 4.6 mmol/L (3.4-5.1); Sodium 141 mmol/L (137-145); Total Protein 8.2 g/dL (6.3-8.2); Triglycerides 174 mg/dL (35-150)
[2019-08-21 13:34] LABS: Prostate Specific Antigen Scrn 0.634 ng/mL (0.1-4.0)
== END ==
PROVIDERS: PCP Family Medicine; Visit Provider Family Medicine
DX: E78.2 Mixed hyperlipidemia (principal)
CPT/HCPCS: 36415; 80053; 80061; 85025; G0103

== ENCOUNTER → 2020-05-27 10:48 | Outpatient (CLI) | payer OTHER, SELFPAY ==
--- NOTE | 2020-05-27 10:51 | DI.RAD.S_ITS ---
PROCEDURE: XR SHOULDER LT MIN 2V INDICATIONS: Shoulder pain TECHNIQUE: 3 views of the shoulder were acquired. COMPARISON: None. FINDINGS: Bones: No fractures or dislocations. No suspicious bony lesions. Visualized ribs appear intact. Mild degenerative osteoarthritic change at the AC joint. Soft tissues: No suspicious soft tissue calcifications. IMPRESSION: No trauma found, mild degenerative change at the AC joint. Dictated by: Rolly Trejo M.D. on 05/27/2020 at 15:40 Approved by: Rolly Trejo M.D. on 05/27/2020 at 15:43
--- NOTE | 2020-05-27 10:51 | DI.RAD.S_ITS ---
PROCEDURE: XR SHOULDER RT MIN 2V INDICATIONS: Shoulder pain TECHNIQUE: 3 views of the shoulder were acquired. COMPARISON: None. FINDINGS: Bones: No fractures or dislocations. No suspicious bony lesions. Visualized ribs appear intact. There is moderately severe AC joint osteoarthritis and mild glenohumeral joint osteoarthritis. No acute trauma found. Soft tissues: No suspicious soft tissue calcifications peripherally but not in the joint space areas several ovoid small calcifications can be seen potentially representing intra-articular loose bodies adjacent to the coracoid process and AC joint.. IMPRESSION: Moderately severe osteoarthritis at the AC joint, possible old trauma but no acute trauma found. Superimposed on the joint interspaces there may be several small ovoid calcific loose bodies which would be more accurately assessed if clinically warranted by contrast injection shoulder MR arthrography. Dictated by: Rolly Trejo M.D. on 05/27/2020 at 12:06 Approved by: Rolly Trejo M.D. on 05/27/2020 at 12:08
--- NOTE | 2020-05-27 10:51 | DI.MRI.S_ITS ---
PROCEDURE: MR LUMBAR SPINE WO CON INDICATIONS: Back pain TECHNIQUE: Noncontrast sagittal T1 spin echo and T2 fast echo, sagittal STIR, axial T1 and T2 fast spin echo through the lumbar spine. In cases with scoliosis, additional coronal T2 fast spin echo may be performed. COMPARISON: [facility], CR, L-SPINE 2-3 VIEWS, 06/17/2016, 10:29. [facility], MR, L-SPINE WITHOUT CONTRAST, 06/17/2016, 10:47. FINDINGS: Image quality: Excellent. Alignment and Curvature: 5 lumbar type vertebral bodies are present by plain film. Mild grade 1 retrolisthesis of L1 on L2, L2 on L3, L3 on L4, and L5 on S1. Bone Marrow: Marrow is of normal overall signal. No acute vertebral body compression fractures. There is moderate reactive signal within the endplates adjacent to the L5-S1 intervertebral disc. Mild reactive signal within the endplates adjacent to the T11-T12, L1-L2, L2-L3, L3-L4, and L4-L5 intervertebral discs. Spinal Cord: Conus medullaris terminates at the L1-L2 disc space level. Visualized cord demonstrates normal signal and size. Paraspinous Soft Tissues: No paravertebral masses. L1-L2: Moderate disc height loss and desiccation. Mild diffuse disc bulge. Mild facet and ligamentum flavum hypertrophy. Moderate epidural lipomatosis. Mild canal stenosis. Mild bilateral foraminal stenosis. No change. L2-L3: Moderate disc height loss and desiccation. Mild diffuse disc bulge. Mild facet and ligamentum flavum hypertrophy. Mild epidural lipomatosis. Mild canal stenosis. Mild bilateral foraminal stenosis. No change. L3-L4: Moderate disc height loss and desiccation. Mild diffuse disc bulge. Mild facet and ligamentum flavum hypertrophy. Moderate epidural lipomatosis. Moderate canal stenosis. Mild bilateral foraminal stenosis. No change. L4-L5: Moderate disc height loss and desiccation. Mild diffuse disc bulge. Moderate epidural lipomatosis. Mild facet and ligamentum flavum hypertrophy. Severe canal stenosis. Mild left and moderate right foraminal stenosis. No change. L5-S1: Moderate disc height loss and desiccation. Mild diffuse disc bulge/osteophyte. Moderate bilateral facet hypertrophy. Moderate epidural lipomatosis. Severe canal stenosis. Moderate bilateral foraminal stenosis. No change. IMPRESSION: 1. Multilevel degenerative disc and facet disease, as well as ligamentum flavum hypertrophy and epidural lipomatosis. 2. Multilevel canal stenosis, worst at L4-L5 and L5-S1, where there are severe canal stenosis, predominantly secondary to epidural lipomatosis. 3. Multilevel foraminal stenosis, worst at L4-L5 and L5-S1, where there are moderate foraminal stenosis as described above. Dictated by: Marianne Escalante M.D. on 05/27/2020 at 11:39 Approved by: Marianne Escalante M.D. on 05/27/2020 at 11:44
== END ==
PROVIDERS: PCP Family Medicine; Referring Provider Family Medicine; Visit Provider Family Medicine
DX: M25.511 Pain in right shoulder (principal); M25.512 Pain in left shoulder; M54.5 Low back pain; M51.36 Other intervertebral disc degeneration, lumbar region; M51.37 Other intervertebral disc degeneration, lumbosacral region; M48.061 Spinal stenosis, lumbar region without neurogenic claudication; M48.07 Spinal stenosis, lumbosacral region; G89.29 Other chronic pain; M19.011 Primary osteoarthritis, right shoulder; M19.012 Primary osteoarthritis, left shoulder
CPT/HCPCS: 72148; 73030

== ENCOUNTER 2020-07-01 08:28 | Outpatient (RCR) | payer OTHER, SELFPAY ==
--- NOTE | 2020-07-01 11:45 | ST.OPIE ---
Visit Care Team Role Provider Type Carlos Arceo MD Family Provider Physician Primary Care Provider Specialty: Family Practice Address: [address] [place] [address], [id number] Email: [email or web address] Lonnie George MD Attending Provider Physician Referring Provider Specialty: Ear, Nose, Throat Address: [address] [place] [address], [id number] Email: [email or web address] Speech-Language Pathology Initial Evaluation COMMUNICATIONS EDITOR Clinical Swallow Evaluation Start: 07/01/20 08:31 Freq: Status: Active Protocol: Document 07/01/20 08:32 AURELIO (Rec: 07/01/20 08:42 AURELIO [id number]) Clinical Swallow Evaluation Session Time Visit Start Time 08:35 Visit Stop Time 09:20 Total Visit Minutes 45 Visit Information Visit Number Initial Evaluation Plan of Care Dates 07/01/20 - 10/01/20 Insurance Information [place] Referral Referring Provider Dr. Lonnie George Reason for Referral Dysphagia, cough Setting Assessment Location Outpatient Care Visit Type Note Type Initial evaluation Next Note Type Next Note Type Treatment Note Patient Information Identification Type Name,ID Card History The pt is a 75-yr-old male with c/o coughing with dry crumbly foods, sometimes water , pepper, rice and the like. This has been happening for the last ~6 mos. Contributes a lot to dull dentures, which he has had for a long time and which he states fit well. Subjective Observations The pt arrived on time and provided case history. Reported by Patient Patient Questionnaire Yes Type of Patient Questionnaire (e.g., EAT Eat 10 -10, MDADI, etc.) Results - Mild impairment. Pt reported food sticks in throat with swallowing and he coughs when he eats. Objective Assessment Mental Status Alert,Responsive,Cooperative Oral Integrity WFL Dentition Upper dentures/partials,Lower dentures/partials,Poor denture or partial fitting Lip Function Within normal limits Observation of Lips at Rest Symmetrical Pucker Within normal limits Lip Retraction Within normal limits Alternating Pucker/Lip Retraction Within normal limits Tongue Function Mild impairment Observations of Tongue at Rest Within normal limits Tongue Protrusion Within normal limits Tongue Lateralization Reduced strength Jaw Function Within normal limits Observations of Jaw at Rest Within normal limits Jaw Opening Within normal limits Jaw Closing Within normal limits Jaw Lateralization Within normal limits Jaw Protrusion Within normal limits Jaw Retraction Within normal limits Hard/Soft Palate Function Within normal limits Observations of Hard/Soft Palate Within normal limits Nasality Within normal limits Phonation Within normal limits Respiratory Sufficiency Within normal limits Comment Mildly reduced lingual strength and buccal coordination. Food and Liquid Trials Position During Assessment Upright (90 degrees) Liquids Trialed Thin Solids Trialed Puree,Mechanical Soft,Regular Administration Type Cup single sip,Cup consecutive sips,Self-feeding Oral Phase Comments Upper dentures are loose fitting, floating during oral peripheral exam. Did not appear to interfere with mastication. Minimal oral residue was observed after all trials, not abnormal. Pharyngeal Impairment Mildly impaired Pharyngeal Phase Comments Minimal hyolaryngeal elevation and anterior excursion was observed via palpation with volitional swallows and with thin liquid. The pt exhibited occasional delayed throat clearing over the duration of oral trials and mild cough x1 following intake of diced tropical fruit. The pt stated he did not adequately chew the pineapple and felt its fibers go down the wrong way, which elicited the cough. Fatigue/Endurance Endurance WNL Results The pt reported typically eating very quickly without chewing well. This was noted initially during oral trials but reduced with COMMUNICATIONS EDITOR instruction and prompts. Findings Swallowing Function Oropharyngeal phase dysphagia Severity of Swallow Impairment Mildly impaired Contributing Factors to Swallow Reduced oral strength/ Impairment coordination/sensation, Mastication inefficiency, Reduced laryngeal excursion, Impaired airway protection Prognosis Good Based on Cognitive status,Family support Comment The pt presents with mild oropharyngeal dysphagia secondary to worn and ill- fitting dentures, mildly reduced lingual strength, reduced airway closure, and possible pharyngeal residue. Skilled intervention is medically necessary to increase strength of swallow mechanism to improve swallow function and safety, as well as ongoing patient education to increase pt's awareness and use of aspiration precautions . Impact on Safety and Functioning Risk for aspiration Recommendations Instrumental Assessment No Swallowing Treatment Yes Frequency Follow up next week, then 1 visit every 2-3 wks Duration for up tp 6 visits Recommended Solids Regular Recommended Liquids Thin Other Recommendations Avoid dry, crumbly textures; add liquid/sauce as needed. Recommend referral to denturist for evaluation/ modification of dentures. Safety Precautions/Swallowing Reduce distractions,Remain Recommendations upright (90 degrees) during all oral intake,Upright position at least 30 minutes after meals,Small bites and sips when eating,Slow rate; swallow between bites Medication Recommendations As Tolerated Discharge Recommendations Home,Outpatient therapy Comments Chew well; do not talk with food in your mouth Education Patient/Caregiver Education Described results of evaluation,Patient expressed understanding of evaluation, Patient expressed agreement with goals & treatment plans Goals Short-term Goals 1. The pt will follow safe swallow strategies independently to reduce risk of aspiration. 2. The pt will perform swallow exercises independently to improve swallow function and safety. Long-term Goals 1. The pt will demonstrate at least 80% compliance with HEP, as measured by pt report and clinician judgment, to improve swallow function and safety and reduce risk of aspiration and choking. 2. The pt will tolerate regular textures and thin liquids without s/sx of aspiration.
--- NOTE | 2020-11-09 14:25 | ST.OPDS ---
Visit Care Team Role Provider Type Carlos Arceo MD Family Provider Physician Primary Care Provider Address: [address] [place] [address] [address] [place], [address] Lonnie George MD Attending Provider Physician Referring Provider Address: [address] [facility] [place], [address] BUSINESS TRAINER Treatment Note BUSINESS TRAINER Treatment Note Start: 11/09/20 14:22 Freq: Status: Active Protocol: Document 11/09/20 14:22 AURELIO (Rec: 11/09/20 14:23 AURELIO [id number]) Speech Pathology Treatment Note Visit Information Plan of Care Dates 07/01/20 - 10/01/20 Insurance Information [place] Visit Type Note Type Discharge Summary General Information General Information The pt is a 75-yr-old male with c/o coughing with dry crumbly foods, sometimes water , pepper, rice and the like. This has been happening for the last ~6 mos. Contributes a lot to dull dentures, which he has had for a long time and which he states fit well. Subjective Observations/Patient Presentation The pt was last seen for initial evaluation 07/01/20 and has not returned for further treatment. He is discharged at this time. Chief Complaint(s) Swallowing Objective Short Term Goals 1. The pt will follow safe swallow strategies independently to reduce risk of aspiration. 2. The pt will perform swallow exercises independently to improve swallow function and safety. Boiler Fireman Goals 1. The pt will demonstrate at least 80% compliance with HEP, as measured by pt report and clinician judgment, to improve swallow function and safety and reduce risk of aspiration and choking. 2. The pt will tolerate regular textures and thin liquids without s/sx of aspiration. Plan Therapy Recommendations Discharge from Speech Therapy
== END 2020-11-11 07:49 ==
LOC: SP 08:28
PROVIDERS: Family Provider Family Medicine; PCP Family Medicine; Referring Provider Otolaryngology; Visit Provider Otolaryngology
DX: R13.10 Dysphagia, unspecified (principal); R05 Cough
CPT/HCPCS: 92610

== ENCOUNTER → 2020-10-07 12:45 | Outpatient (CLI) | payer OTHER, SELFPAY ==
--- NOTE | 2020-10-07 12:46 | DI.RAD.S_ITS ---
PROCEDURE: XR LUMBAR SPINE MIN 4V INDICATIONS: Chronic progressive low back pain TECHNIQUE: 5 views of the lumbar spine were acquired. COMPARISON: [facility], , L-SPINE 2-3 VIEWS, 06/17/2016, 10:29. FINDINGS: Bones: No fracture. Multilevel degenerative endplate sclerosis and spurring. Diffuse facet arthropathy. Diffuse moderate narrowing of the lumbar disc spaces. Severe narrowing of the L5-S1 disc space. Mild dextrocurvature. Soft tissues: Scattered vascular calcifications Oblique images: No pars defects. IMPRESSION: Diffuse lumbar spondylosis and facet arthropathy, with no interval change since 06/17/16. Dictated by: Chevy Kelly M.D. on 10/07/2020 at 13:21 Approved by: Chevy Kelly M.D. on 10/07/2020 at 13:38
== END ==
PROVIDERS: Family Provider Family Medicine; PCP Family Medicine; Referring Provider Physical Medicine & Rehabilitation; Visit Provider Physical Medicine & Rehabilitation
DX: M54.5 Low back pain (principal); M47.816 Spondylosis without myelopathy or radiculopathy, lumbar region
CPT/HCPCS: 72110

== ENCOUNTER → 2020-10-27 12:26 | Outpatient (CLI) | payer OTHER, SELFPAY ==
[2020-10-27 16:36] LABS: COVID19 -Nasal RAPID Negative (Negative)
== END ==
PROVIDERS: Family Provider Family Medicine; PCP Family Medicine; Visit Provider Physical Medicine & Rehabilitation
DX: Z20.822 Contact with and (suspected) exposure to COVID-19 (principal)
CPT/HCPCS: 87635; C9803

== ENCOUNTER 2020-10-29 13:36 | Outpatient (CLI) | payer OTHER, SELFPAY ==
[2020-10-29] VITALS (7 sets, daily range): BP systolic 107–188; BP diastolic 69–89; PULSE 92–112; RESP 12–20; TEMP 36.9; O2SAT 93–98
--- NOTE | 2020-10-29 13:37 | DI.RAD.S_ITS ---
PROCEDURE: PAIN L/S FACET INJ/BLK 1ST ANNA COMPARISON: [facility], CR, XR LUMBAR SPINE MIN 4V, 10/07/2020, 12:47. [facility], MR, MR LUMBAR SPINE WO CON, 05/27/2020, 11:01. INDICATIONS: SPONDYLOSIS FINDINGS: 6 intraoperative fluoroscopy images demonstrate needle placement at L4-L5 and L5-S1 facet joints bilaterally. IMPRESSION: Fluoroscopy for pain management. Dictated by: Jamie Garcia M.D. on 10/29/2020 at 15:15 Approved by: Jamie Garcia M.D. on 10/29/2020 at 15:15
[2020-10-29] MEDS: fentaNYL 100 MCG/2 ML INJ 50 MCG IV (14:41)
[2020-10-29] MEDS: MIDAZOLAM 5 MG/5 ML VIAL IV (14:41)
[2020-10-29] MEDS: BUPIVACAINE 0.5% (PF) VIAL 5 ML INJ (14:53)
[2020-10-29] MEDS: IOPAMIDOL 15 ML VIAL 3 ML INJ (14:53)
[2020-10-29] MEDS: LIDOCAINE 1% 20 ML 10 ML INJ (14:54)
[2020-10-29] MEDS: BETAMETHASONE 30 MG/5 ML MDV 12 MG INJ (14:54)
--- NOTE | 2020-10-29 14:58 | P.PCN_ITS ---
Date/Time/Diagnoses Date of procedure: 10/29/20 Time of procedure: 14:58 Pre-procedure diagnosis: 1. FACET ARTHROPATHY 2. AXIAL LBP 3. MULTILEVEL DDD Post-procedure diagnosis: same Procedure Notes Procedure: 1. FLUOROSCOPICALLY GUIDED CONTRAST CONTROLLED FACET JOINT INJECTIONS BILATERAL L4/5, L5/S1 Indications: Shelia is referred by Dr. Azul for treatment of Axial LBP Physician: Tevin Morales Total Fluoroscopy time (seconds): 10 Total sedation minutes: 13 Complications: none Procedure in detail & Post-procedure care: FINDINGS Multilevel Facet Arthropathy with Clinically significant axial LBP DESCRIPTION OF PROCEDURE Fluoroscopically guided, contrast-controlled bilateral L4/5, L5/S1 facet joint injections. Following review of allergy and review of potential side effects and complications, including, but not necessarily limited to, infection, allergic reaction, local tissue breakdown, stroke, temporary or permanent nerve injury, paralysis, and possible , the patient indicated that the patient understood and agreed to proceed. An informed consent document was signed by the patient, witnessed by a nurse, and placed in the patient's chart. Additionally, other treatment options including medications, modalities, and physical therapy were reviewed with the patient. After review of previous anaesthesic history and IV conscious sedation the patient was deemed safe to proceed with today?s procedure with IV conscious sedation as ASA class II designation. Safety time-out was performed to confirm patient ID, procedure to be performed and site of procedure. IV sedation was accomplished with a combination of 2mg of Versed and 50mcg of Fentanyl was administered by the RN after DO order, titrated to patient comfort during the course of the procedure while the patient remained responsive to all verbal commands In the prone position, following sterile prep and drape of the lumbar region, the posterior aspect of the L4/5, L5/S1 facet joints were identified fluoroscopically. The skin was anesthetized via a 25-gauge 1.5inch needle with 1% lidocaine solution into the corresponding facet joints. At this point, a 22- gauge 3.5-inch spinal needle was atraumatically introduced and advanced under fluoroscopic guidance into the corresponding facet joints. Following negative aspiration, injections of approximately 0.2cc of Isovue 200 confirmed intera rticular placement without vascular uptake. The identical procedure was then performed at the L4/5, L5/S1 facet joints on the left. Radiological data, including multiple fluoroscopic views of the lumbosacral spine, reveal a spinal needle at the L4/5, L5/S1 facet joints bilaterally. Subsequent views show flow of contrast material both superiorly and inferiorly within the joint space without vascular or intrathecal uptake. At this point, a total of 0.5cc including a mixture of 0.25cc Marcaine and 0.25cc betamethasone was injected without complication into each of the corresponding facet joints. The patient tolerated the procedure well without signs or symptoms of complications prior to transfer to the recovery area continued monitoring without incident. The patient was then transferred to the recovery area where they were observed for an appropriate period of time after the injection. The patient reported a VAS score of 7 prior to the procedure and a post- procedure VAS of 0. POST OP INSTRUCTIONS The patient was provided a Pain Log to continue to record their response to the target-specific procedure prior to follow-up visit with their referring physician. Additionally, specific post-injection care instructions and a contact number to our office were provided if concerns arise regarding possible complications associated with the procedure are suspected.
== END 2020-10-29 15:20 | disposition home or self-care (01) ==
LOC: RAD 13:36
PROVIDERS: Family Provider Family Medicine; PCP Family Medicine; Referring Provider Family Medicine; Visit Provider Physical Medicine & Rehabilitation
DX: M47.816 Spondylosis without myelopathy or radiculopathy, lumbar region (principal); M47.817 Spondylosis without myelopathy or radiculopathy, lumbosacral region; M51.36 Other intervertebral disc degeneration, lumbar region; M51.37 Other intervertebral disc degeneration, lumbosacral region; M54.5 Low back pain
CPT/HCPCS: 64493; 64494; 99152; J0702; J2250; J3010

== ENCOUNTER → 2021-04-08 11:30 | Outpatient (CLI) | payer OTHER, SELFPAY ==
[2021-04-08 15:26] LABS: Creatinine Urine Random 150.3 mg/dL
[2021-04-08 15:31] LABS: Microalbumi Creatinin Ratio Ur 40.5 ug/mg CR (<30); Microalbumin Urine Random 6.1 mg/dL (0-1.6)
[2021-04-08 15:50] LABS: Alanine Aminotransferase 48 IU/L (<50); Albumin 4.2 g/dL (3.5-5.0); Albumin Globulin Ratio 1.4 (1.0-2.8); Alkaline Phosphatase 78 U/L (38-126); Aspartate Aminotransferase 58 IU/L (17-59); BUN Creatinine Ratio 12.7 (6-22); Bilirubin Total 0.6 mg/dL (0.2-1.3); Blood Urea Nitrogen 15 mg/dL (9-20); Calcium 9.5 mg/dL (8.4-10.2); Carbon Dioxide 26 mmol/L (22-32); Chloride 104 mmol/L (98-107); Cholesterol 189 mg/dL (140-199); Estimated Glomerular Filt Rate > 60.0 mL/min (>60); Globulin 2.9 g/dL (1.7-4.1); Glucose 116 mg/dL (80-110); HDL Cholesterol 55 mg/dL (40-60); HEMOLYSIS < 15 (0-50); LDL Cholesterol Calculated 82 mg/dL (<100); Potassium 4.2 mmol/L (3.4-5.1); Sodium 138 mmol/L (137-145); Total Protein 7.1 g/dL (6.3-8.2); Triglycerides 258 mg/dL (35-150); Uric Acid 8.2 mg/dL (3.5-8.5)
== END ==
PROVIDERS: Family Provider Family Medicine; PCP Family Medicine; Referring Provider Family Medicine; Visit Provider Family Medicine
DX: E78.2 Mixed hyperlipidemia (principal); F51.01 Primary insomnia; G47.33 Obstructive sleep apnea (adult) (pediatric); M10.9 Gout, unspecified
CPT/HCPCS: 36415; 80053; 80061; 82043; 82570; 84550

== ENCOUNTER → 2021-11-12 14:47 | Outpatient (CLI) | payer OTHER, SELFPAY ==
[2021-11-12 16:49] LABS: INR 3.2 (0.9-1.3); Prothrombin Time 36.9 SECONDS (10.1-12.7)
== END ==
PROVIDERS: Family Provider Family Medicine; PCP Family Medicine; Referring Provider Student in an Organized Health Care Education/Training Program; Visit Provider Student in an Organized Health Care Education/Training Program
DX: Z79.01 Long term (current) use of anticoagulants (principal)
CPT/HCPCS: 36415; 85610

== ENCOUNTER → 2022-03-04 09:28 | Outpatient (CLI) | payer OTHER, SELFPAY ==
--- NOTE | 2022-03-04 09:30 | DI.RAD.S_ITS ---
PROCEDURE: XR CHEST 2V INDICATIONS: lung crackles, dyspnea TECHNIQUE: 2 views of the chest were acquired. COMPARISON: [facility], , CHEST 2 VIEW, 09/13/2011, 16:23. FINDINGS: Surgical changes and devices: Median sternotomy wires. Prosthetic aortic valve. Lungs and pleura: Bilateral lung interstitial prominence. Trace right-sided pleural fluid collection. No pneumothorax. Mediastinum: Mediastinal contours are normal. Heart size is normal. Bones and chest wall: No suspicious bony abnormalities. Soft tissues appear unremarkable. IMPRESSION: Interstitial prominence which could represent atypical pneumonia or pulmonary edema. Dictated by: Pauline Arvizu MD, PhD on 03/04/2022 at 12:11 Approved by: Pauline Arvizu MD, PhD on 03/04/2022 at 12:13
[2022-03-04 10:08] LABS: Add Manual Diff / Slide Review NO; Basophils Absolute Auto 0 /uL (0-100); Basophils Percent Auto 0.5 % (0-2); Eosinophils Absolute Auto 100 /uL (0-450); Eosinophils Percent Auto 1.8 % (2-4); Hematocrit 41.4 % (41-53); Hemoglobin 13.5 g/dL (13.5-17.5); Lymphocytes Absolute Auto 1300 /uL (1100-4500); Lymphocytes Percent Auto 19.5 % (25-40); Mean Corpuscular HGB Conc 32.7 % (30-36); Mean Corpuscular Hemoglobin 28.4 PG (26-34); Mean Corpuscular Volume 86.9 fL (80-100); Monocytes Absolute Auto 800 /uL (0-900); Monocytes Percent Auto 12.2 % (3-14); Neutrophils Absolute Auto 4500 /uL (1500-7000); Platelet Count 205 X10^3/uL (150-400); Red Blood Cell Count 4.77 X10^6/uL (4.5-5.9); Red Cell Distribution Width 14.1 % (11.6-14.8); White Blood Cell Count 6.8 X10^3/uL (4.5-11.0)
[2022-03-04 10:44] LABS: HEMOLYSIS < 15 (0-50); NT-proBNP (BNP-Adult 18+) 435 pg/mL (<450)
[2022-03-04 10:47] LABS: Alanine Aminotransferase 43 IU/L (<50); Albumin 4.6 g/dL (3.5-5.0); Albumin Globulin Ratio 1.4 (1.0-2.8); Alkaline Phosphatase 84 U/L (38-126); Aspartate Aminotransferase 50 IU/L (17-59); BUN Creatinine Ratio 11.8 (6-22); Bilirubin Total 0.7 mg/dL (0.2-1.3); Blood Urea Nitrogen 14 mg/dL (9-20); Carbon Dioxide 29 mmol/L (22-32); Chloride 104 mmol/L (98-107); Cholesterol 169 mg/dL (140-199); Estimated Glomerular Filt Rate > 60 mL/min (>60); Globulin 3.3 g/dL (1.7-4.1); Glucose 139 mg/dL (80-110); HDL Cholesterol 48 mg/dL (40-60); LDL Cholesterol Calculated 88 mg/dL (<100); Potassium 4.4 mmol/L (3.4-5.1); Sodium 142 mmol/L (137-145); Total Protein 7.9 g/dL (6.3-8.2); Triglycerides 165 mg/dL (35-150)
[2022-03-04 10:59] LABS: TSH w/ Reflex to FT4 2.11 uIU/mL (0.47-4.68)
[2022-03-04 11:34] LABS: Creatinine Urine Random 132.2 mg/dL
[2022-03-04 11:38] LABS: Microalbumi Creatinin Ratio Ur 43.8 ug/mg CR (<30); Microalbumin Urine Random 5.8 mg/dL (0-1.6)
== END ==
PROVIDERS: Family Provider Family Medicine; PCP Family Medicine; Referring Provider Family Medicine; Visit Provider Family Medicine
DX: R06.00 Dyspnea, unspecified (principal); E78.2 Mixed hyperlipidemia; I10 Essential (primary) hypertension; Z79.01 Long term (current) use of anticoagulants; Z95.1 Presence of aortocoronary bypass graft; Z95.2 Presence of prosthetic heart valve
CPT/HCPCS: 36415; 71046; 80053; 80061; 82043; 82570; 83880; 84443; 85025

== ENCOUNTER → 2022-04-06 10:41 | Outpatient (CLI) | payer OTHER, SELFPAY ==
--- NOTE | 2022-04-06 10:42 | DI.NM.S_ITS ---
PROCEDURE: NM NELDA PERF SPECT R&S PHARM Rest and pharmacological stress myocardial perfusion SPECT with gated imaging and ejection fraction RADIOPHARMACEUTICAL: 25.7 mCi Tc-99m tetrafosmin IV at rest and 25.7 mCi Tc-99m tetrafosmin IV at peak effect of pharmacological stress. Ejk-ehm-oediuqga was performed. INDICATIONS: dyspnea on exertion TECHNIQUE: Radiopharmaceutical was injected at peak stress test, and also at rest. SPECT images were obtained. SPECT myocardial perfusion images were displayed in short axis, horizontal long axis, and vertical long axis views. Gated images were reviewed using LuckyCal software. COMPARISON: None. CARDIAC STRESS: A pharmacologic stress test was performed under the supervision of an attending staff, using an infusion of lexiscan 0.4mg IV X1. Hemodynamic data: There is normal blood pressure and heart rate response to pharmacologic stress. Symptoms: The patient denied anginal chest pain. Aminophylline: none EKG: No diagnostic changes of ischemia; rare PVCs present. FINDINGS: Raw data: There is good myocardial uptake of radiotracer. No significant motion artifacts. Left ventricle function: Gated images demonstrate normal left ventricular wall thickening. No segmental wall motion abnormalities. No transient ischemic dilation; TID is 1.05 (normal less than 1.3). Left ventricle resting end diastolic volume is 207mL. Left ventricle stress ejection fraction is 48%. Myocardial perfusion: There is a moderately intense fixed inferior wall defect consistent with prior infarction. There is also very mild intense reversible anterior wall defect consistent with mild ischemia and no prior infarction in this territory. SSS 5. SRS 3. No prone images done due to patient's body habitus. IMPRESSION: Abnormal nuclear stress test consistent with prior infarction in the inferior wall and ischemia in the anterior wall. 1) There is a moderately intense fixed inferior wall defect consistent with prior infarction. There is also very mild intense reversible anterior wall defect consistent with mild ischemia and no prior infarction in this territory. SSS 5. SRS 3. No prone images done due to patient's body habitus. 2) Enlarged left ventricle (resting EDV 207cc) with mildly reduced systolic function (EF post stress 48%). Mild global hypokinesis present. 3) No ST changes with lexiscan. 4) No angina during the study. 5) Compared to the nuc stress done 04/06/2018, this current nuclear study is abnormal but it could be due to artifacts (prone imaging not done during the current study). Dictated by: Sushil Castro MD on 04/07/2022 at 16:54 Approved by: Sushil Castro MD on 04/07/2022 at 16:59
[2022-04-06 14:13] LABS: COVID19 -Nasal RAPID Negative (Negative)
--- NOTE | 2022-04-07 14:17 | P.PCN_ITS ---
Cardiac Stress Test Report Referral & Results Date Patient Seen: 04/07/22 Requesting provider: Erik Azul Indication: Dyspnea Rest ECG: Unremarkable although frequent PVCs Procedure Note: After both written and verbal informed consent the patient had an IV started by the diagnostic imaging RN and then was hooked up to the treadmill monitoring system. The patient was placed on the treadmill at 1 mile an hour with no elevation and was then injected with the [place] scan material. The Cardiolite was then immediately administered. The patient spent an additional 2-3 minutes on the treadmill before being returned to the [facility] in the supine position. The patient had a normal response to all infused materials. There were some nonspecific ST-T segment changes in the inferior leads and the frequent PVCs persisted, he did become dyspneic even with minimal activity of walking as above Impression: Normal response to infuse materials, see perfusion imaging report for details regarding possible ischemia Please note: Actual ECG tracings can be found in the PACS system.
== END ==
PROVIDERS: Family Provider Family Medicine; PCP Family Medicine; Referring Provider Family Medicine; Visit Provider Family Medicine
DX: R06.00 Dyspnea, unspecified (principal); Z95.2 Presence of prosthetic heart valve; Z95.1 Presence of aortocoronary bypass graft; I49.3 Ventricular premature depolarization; I51.7 Cardiomegaly; Q21.8 Other congenital malformations of cardiac septa
CPT/HCPCS: 78452; 87635; 93016; 93017; 93018; A9502; J2785

== ENCOUNTER → 2022-04-20 11:17 | Outpatient (CLI) | payer OTHER, SELFPAY | PROVIDERS: Family Provider Family Medicine; PCP Family Medicine; Referring Provider Nurse Practitioner Acute Care; Visit Provider Nurse Practitioner Acute Care | DX: R06.00 Dyspnea, unspecified (principal) ==

== ENCOUNTER → 2022-05-09 12:50 | Outpatient (CLI) | payer OTHER, SELFPAY ==
[2022-05-09 16:01] LABS: BUN Creatinine Ratio 14.4 (6-22); Blood Urea Nitrogen 20 mg/dL (9-20); Calcium 9.4 mg/dL (8.4-10.2); Carbon Dioxide 24 mmol/L (22-32); Chloride 103 mmol/L (98-107); Estimated Glomerular Filt Rate 53 mL/min (>60); Glucose 106 mg/dL (80-110); HEMOLYSIS < 15 (0-50); Potassium 4.2 mmol/L (3.4-5.1); Sodium 139 mmol/L (137-145)
== END ==
PROVIDERS: Family Provider Family Medicine; PCP Family Medicine; Referring Provider Nurse Practitioner Acute Care; Visit Provider Nurse Practitioner Acute Care
DX: I10 Essential (primary) hypertension (principal)
CPT/HCPCS: 36415; 80048

== ENCOUNTER → 2023-02-24 15:13 | Outpatient (CLI) | payer OTHER, SELFPAY ==
[2023-02-24 15:48] LABS: INR 5.1 (0.9-1.3)
[2023-02-24 16:36] LABS: Prothrombin Time 59.4 SECONDS (10.1-12.7)
== END ==
PROVIDERS: Family Provider Family Medicine; PCP Family Medicine; Referring Provider Family Medicine; Visit Provider Family Medicine
DX: I82.409 Acute embolism and thrombosis of unspecified deep veins of unspecified lower extremity (principal)
CPT/HCPCS: 36415; 85610

== ENCOUNTER → 2023-02-27 15:25 | Outpatient (CLI) | payer OTHER, SELFPAY ==
[2023-02-27 17:14] LABS: Prothrombin Time 34.6 SECONDS (10.1-12.7)
== END ==
PROVIDERS: Family Provider Family Medicine; PCP Family Medicine; Referring Provider Family Medicine; Visit Provider Family Medicine
DX: I82.409 Acute embolism and thrombosis of unspecified deep veins of unspecified lower extremity (principal)
CPT/HCPCS: 36415; 85610

== ENCOUNTER 2023-03-08 16:45 | Emergency (ER) | payer OTHER, SELFPAY ==
[2023-03-08] VITALS (14 sets, daily range): BP systolic 136–193; BP diastolic 67–93; PULSE 80–90; RESP 18–23; TEMP 36.2–36.6; O2SAT 90–97; BMI 36.8
--- NOTE | 2023-03-08 16:59 | DI.RAD.S_ITS ---
PROCEDURE: XR CHEST 1V INDICATIONS: Shortness of breath TECHNIQUE: One view of the chest was acquired. COMPARISON: [facility], CR, XR CHEST 2V, 03/04/2022, 9:20. FINDINGS: Surgical changes and devices: Median sternotomy changes. Valvuloplasty right. Lungs and pleura: Mild bilateral interstitial thickening and thickening of the right fissures. Slight opacity at the right lung base. No definite pleural effusions and no pneumothorax. Mediastinum: Mild to moderate cardiomegaly, similar compared to prior. Slight cephalization of central vessels. Bones and chest wall: No suspicious bony lesions. Overlying soft tissues appear unremarkable. Severe right shoulder AC joint degeneration. IMPRESSION: 1. Slight cephalization of central vessels and diffuse interstitial thickening may indicate edema or interstitial pneumonia. 2. Slight opacity at the right lung base may be pulmonary edema or infection. 3. Mild cardiomegaly with postsurgical changes. Dictated by: Siri Nazario M.D. on 03/08/2023 at 17:15 Approved by: Siri Nazario M.D. on 03/08/2023 at 17:17
[2023-03-08 17:19] LABS: Add Manual Diff / Slide Review NO; Basophils Absolute Auto 0 /uL (0-100); Basophils Percent Auto 0.6 % (0-2); Eosinophils Absolute Auto 100 /uL (0-450); Eosinophils Percent Auto 1.1 % (2-4); Hematocrit 40.3 % (41-53); Hemoglobin 13.5 g/dL (13.5-17.5); Lymphocytes Absolute Auto 900 /uL (1100-4500); Mean Corpuscular HGB Conc 33.6 % (30-36); Mean Corpuscular Hemoglobin 29.2 PG (26-34); Mean Corpuscular Volume 87.1 fL (80-100); Monocytes Absolute Auto 800 /uL (0-900); Monocytes Percent Auto 10.1 % (3-14); Neutrophils Absolute Auto 6300 /uL (1500-7000); Neutrophils Percent Auto 77.2 % (50-75); Platelet Count 209 X10^3/uL (150-400); Red Blood Cell Count 4.62 X10^6/uL (4.5-5.9); Red Cell Distribution Width 15.1 % (11.6-14.8); White Blood Cell Count 8.2 X10^3/uL (4.5-11.0)
[2023-03-08 17:21] LABS: Prothrombin Time 34.8 SECONDS (10.1-12.7)
[2023-03-08 17:35] LABS: Alanine Aminotransferase 39 IU/L (<50); Albumin 4.2 g/dL (3.5-5.0); Albumin Globulin Ratio 1.1 (1.0-2.8); Alkaline Phosphatase 94 U/L (38-126); Aspartate Aminotransferase 35 IU/L (17-59); BUN Creatinine Ratio 14.2 (6-22); Blood Urea Nitrogen 17 mg/dL (9-20); Carbon Dioxide 30 mmol/L (22-32); Chloride 101 mmol/L (98-107); Estimated Glomerular Filt Rate > 60 mL/min (>60); Globulin 3.9 g/dL (1.7-4.1); Glucose 126 mg/dL (80-110); HEMOLYSIS 17 (0-50); Lactate (Lactic Acid) 1.2 mmol/L (0.7-2.1); Potassium 4.3 mmol/L (3.4-5.1); Sodium 139 mmol/L (137-145); Total Protein 8.1 g/dL (6.3-8.2)
[2023-03-08 17:45] LABS: NT-proBNP (BNP-Adult 18+) 2120 pg/mL (<450); Troponin I < 0.012 ng/mL (0.01-0.034)
--- NOTE | 2023-03-08 18:33 | PC.NURSE ---
Reports diagnose with cellulitis in right foot that has not improved since starting antibiotics. Shortness of breath x 2-3 days, worse with exertion and lying flat. History of CHF, on lasix.
--- NOTE | 2023-03-08 18:34 | ED_ITS ---
HPI - General Adult General Chief complaint: Shortness of Breath/Dyspnea Stated complaint: rt foot swelling and red Time Seen by Provider: 03/08/23 18:21 Source: patient Mode of arrival: Ambulatory Limitations: no limitations History of Present Illness HPI narrative: Patient is a 78-year-old male who is here for evaluation of swelling and redness to his right foot. He is also having some shortness of breath. He does have history of heart failure. He states that he is supposed to be on Lasix but does not take it as much as he should because he does not like to urinate while he is at work. He is not having any chest pain. Is having redness and swelling to the outside of his right foot. He does have a history of gout. He states this feels very similar to his prior history of gout. He has had gout in his feet in the past but normally it starts in his big toe and this did not start in the big toe. He was seen recently at a walk-in clinic. He was started on antibiotics for concern about infection. States the symptoms have not improved but not worsened either. He denies any specific trauma to his foot. Related Data Previous Rx's Medication Instructions Recorded duloxetine 60 mg capsule,delayed 60 mg PO DAILY #60 caps 07/13/21 release (Cymbalta) ropinirole 0.5 mg tablet 0.5 mg PO BEDTIME #60 tabs 07/13/21 amlodipine 5 mg tablet See Rx Instructions .Route 10/05/21 .COMPLEX #90 tabs furosemide 20 mg tablet (Lasix) 20 mg PO DAILY #60 tabs 03/04/22 potassium chloride 10 mEq 10 meq PO DAILY #60 tabs 03/04/22 tablet,extended release terazosin 2 mg capsule See Rx Instructions .Route 03/14/22 .COMPLEX #180 caps albuterol sulfate 90 mcg/actuation 2 puff inhalation Q6H PRN 03/21/22 aerosol inhaler shortness of breath or wheezing #8.5 grams atorvastatin 80 mg tablet See Rx Instructions .Route 10/04/22 .COMPLEX #90 tabs amitriptyline 50 mg tablet See Rx Instructions .Route 12/16/22 .COMPLEX #60 tabs warfarin 2.5 mg tablet See Rx Instructions .Route 12/16/22 .COMPLEX #100 tabs pramipexole 0.125 mg tablet See Rx Instructions .Route 02/02/23 .COMPLEX #60 tabs hydrocodone 5 mg-acetaminophen 325 2 tab PO Q6H PRN pain #120 tabs 02/27/23 mg tablet cephalexin 500 mg capsule 500 mg PO QID 7 days #28 caps 03/03/23 prednisone 20 mg tablet 40 mg PO DAILY 6 days #12 tabs 03/08/23 Allergies Allergy/AdvReac Type Severity Reaction Status Date / Time azithromycin [AZITHROMYCIN] Allergy Mild RASH Verified 03/03/23 12:37 lovastatin [LOVASTATIN] Allergy Mild CAUSING Verified 03/03/23 12:37 HIM BREATHING ISSUE oxycodone [OXYCODONE] Allergy Mild RASH Verified 03/03/23 12:37 venlafaxine [VENLAFAXINE] Allergy Mild POSS HIVES Verified 03/03/23 12:37 venom-honey bee Allergy Mild SWELLING Verified 03/03/23 12:37 [BEE VENOM (HONEY BEE)] RT LEG Review of Systems Constitutional Constitutional: Reports system reviewed and no additional complaints, except as documented Cardiovascular Cardiovascular: Reports system reviewed and no additional complaints, except as documented Respiratory Respiratory: Reports system reviewed and no additional complaints, except as documented Gastrointestinal Gastrointestinal: Reports system reviewed and no additional complaints, except as documented Musculoskeletal Musculoskeletal: Reports system reviewed and no additional complaints, except as documented Integumentary/Breasts Skin/Breast: Reports system reviewed and no additional complaints, except as documented Neurologic Neurologic: Reports system reviewed and no additional complaints, except as documented Hematologic/Lymphatic On Anticoagulants: Yes Patient History Medical History Aortic stenosis (1996) Bladder tumor (1989) Chicken pox Chronic back pain Congenital heart defect (1946) Facet arthropathy, lumbar Gastric ulcer (1987) Gout Hayfever Hearing loss (1989) Hip pain Hypertension Hypertension Knee pain Low testosterone Measles Mumps Rheumatic fever RLS (restless legs syndrome) Sleep apnea (2010) Warfarin anticoagulation Surgical History Anesthesia History of bladder surgery (1989) Status post cardiac surgery (1996) Family History Brother Cancer Father Heart disease Alzheimer's disease Mother Hypertension Social History Smoking Status: Former smoker Smoking Status: Former smoker alcohol intake frequency: 0-2 drinks per day Substance Use Type: does not use Exam Initial Vital Signs Initial Vital Signs: Vital Signs Temperature 97.1 F L 03/08/23 16:49 Pulse Rate 88 03/08/23 16:49 Respiratory Rate 18 03/08/23 16:49 Blood Pressure 136/91 H 03/08/23 16:49 Pulse Oximetry 92 03/08/23 16:49 Oxygen Delivery Method Room Air 03/08/23 16:49 HENMT Head: normal to inspection and normocephalic Resp Effort & Inspection: normal respiratory effort and tachypneic Auscultation: clear to auscultation bilaterally Cardio Rate: regular rate Rhythm: regular rhythm Pulses: dorsalis pedis present on the right Skin Other: He does have redness with slight warmth to the dorsum of the right foot on the lateral aspect. Neuro General: patient alert, patient awake, patient oriented x3 and moves all extremi ties Extrem Other: Swelling to bilateral lower extremities Course Orders Ordered: ED Orders 03/08/23 18:34 XR foot RT min 3V Stat Discontinued Medications Prednisone (Prednisone 20 Mg Tablet) 40 mg PO NOW ONE Stop: 03/08/23 20:22 Last Admin: 03/08/23 20:26 Dose: 40 mg Documented By: TATE Vital Signs Vital signs: Vital Signs - 8 hr 03/08/23 19:30 03/08/23 19:31 03/08/23 19:31 Temperature Pulse Rate 83 83 Respiratory Rate 23 21 Blood Pressure 186/81 H Pulse Oximetry 97 97 Oxygen Delivery Method Oxygen Flow Rate 03/08/23 20:00 03/08/23 20:01 03/08/23 20:01 Temperature Pulse Rate 88 90 Respiratory Rate Blood Pressure 187/87 H Pulse Oximetry 93 91 Oxygen Delivery Method Nasal Cannula Oxygen Flow Rate 2 03/08/23 20:37 Temperature 98 F Pulse Rate 80 Respiratory Rate 20 Blood Pressure 165/88 H Pulse Oximetry 94 Oxygen Delivery Method Room Air Oxygen Flow Rate Medical Decision Making Lab Data Lab results reviewed: Yes I reviewed the patient's lab results. 03/08/23 17:03 03/08/23 17:03 Labs: Lab Results 03/08/23 03/08/23 03/08/23 Range/Units 17:03 17:03 17:03 WBC 8.2 (4.5-11.0) X10^3/uL RBC 4.62 (4.5-5.9) X10^6/uL Hgb 13.5 (13.5-17.5) g/dL Hct 40.3 L (41-53) % MCV 87.1 (80-100) fL MCH 29.2 (26-34) PG MCHC 33.6 (30-36) % RDW 15.1 H (11.6-14.8) % Plt Count 209 (150-400) X10^3/uL Neut % (Auto) 77.2 H (50-75) % Lymph % (Auto) 11.0 L (25-40) % [place] % (Auto) 10.1 (3-14) % Eos % (Auto) 1.1 L (2-4) % Baso % (Auto) 0.6 (0-2) % Neut # (Auto) 6300 (2823-5059) /uL Lymph # (Auto) 900 L (2332-8543) /uL [place] # (Auto) 800 (0-900) /uL Eos # (Auto) 100 (0-450) /uL Baso # (Auto) 0 (0-100) /uL PT 34.8 H (10.1-12.7) SECONDS INR 3.0 H (0.9-1.3) Sodium 139 (137-145) mmol/L Potassium 4.3 (3.4-5.1) mmol/L Chloride 101 (98-107) mmol/L Carbon Dioxide 30 (22-32) mmol/L BUN 17 (9-20) mg/dL Creatinine 1.20 (0.66-1.25) mg/dL Estimated GFR > 60 (>60) mL/min BUN/Creatinine Ratio 14.2 (6-22) Glucose 126 H (80-110) mg/dL Lactate (0.7-2.1) mmol/L Uric Acid (3.5-8.5) mg/dL Calcium 9.0 (8.4-10.2) mg/dL Total Bilirubin 1.0 (0.2-1.3) mg/dL AST 35 (17-59) IU/L ALT 39 (<50) IU/L Alkaline Phosphatase 94 (38-126) U/L Troponin I < 0.012 (0.01-0.034) ng/mL NT-Pro-B Natriuret Pep 2120 H (<450) pg/mL Total Protein 8.1 (6.3-8.2) g/dL Albumin 4.2 (3.5-5.0) g/dL Globulin 3.9 (1.7-4.1) g/dL Albumin/Globulin Ratio 1.1 (1.0-2.8) 03/08/23 03/08/23 Range/Units 17:03 17:03 WBC (4.5-11.0) X10^3/uL RBC (4.5-5.9) X10^6/uL Hgb (13.5-17.5) g/dL Hct (41-53) % MCV (80-100) fL MCH (26-34) PG MCHC (30-36) % RDW (11.6-14.8) % Plt Count (150-400) X10^3/uL Neut % (Auto) (50-75) % Lymph % (Auto) (25-40) % [place] % (Auto) (3-14) % Eos % (Auto) (2-4) % Baso % (Auto) (0-2) % Neut # (Auto) (6577-5586) /uL Lymph # (Auto) (5489-9283) /uL [place] # (Auto) (0-900) /uL Eos # (Auto) (0-450) /uL Baso # (Auto) (0-100) /uL PT (10.1-12.7) SECONDS INR (0.9-1.3) Sodium (137-145) mmol/L Potassium (3.4-5.1) mmol/L Chloride (98-107) mmol/L Carbon Dioxide (22-32) mmol/L BUN (9-20) mg/dL Creatinine (0.66-1.25) mg/dL Estimated GFR (>60) mL/min BUN/Creatinine Ratio (6-22) Glucose (80-110) mg/dL Lactate 1.2 (0.7-2.1) mmol/L Uric Acid 8.5 (3.5-8.5) mg/dL Calcium (8.4-10.2) mg/dL Total Bilirubin (0.2-1.3) mg/dL AST (17-59) IU/L ALT (<50) IU/L Alkaline Phosphatase (38-126) U/L Troponin I (0.01-0.034) ng/mL NT-Pro-B Natriuret Pep (<450) pg/mL Total Protein (6.3-8.2) g/dL Albumin (3.5-5.0) g/dL Globulin (1.7-4.1) g/dL Albumin/Globulin Ratio (1.0-2.8) Urine Dip Bedside Urine Glucose Negative Bedside Urine Bilirubin - Negative Bedside Urine Ketone - Negative Urine Specific [place] 1.015 Bedside Urine Occult Blood - Negative Bedside Urine pH 6 Bedside Urine Protein - Negative Bedside Urine Urobilinogen - Negative Bedside Urine Nitrite - Negative Bedside Urine Leukocytes - Negative Esterase Point of care testing: Urine Dip Bedside Urine Glucose Negative Bedside Urine Bilirubin - Negative Bedside Urine Ketone - Negative Urine Specific [place] 1.015 Bedside Urine Occult Blood - Negative Bedside Urine pH 6 Bedside Urine Protein - Negative Bedside Urine Urobilinogen - Negative Bedside Urine Nitrite - Negative Bedside Urine Leukocytes - Negative Esterase Imaging Data Chest x-ray: Radiologist's Impression: PROCEDURE:? XR CHEST 1V ? INDICATIONS:? Shortness of breath ? TECHNIQUE:? One view of the chest was acquired.? ? COMPARISON:? [facility], CR, XR CHEST 2V, 03/04/2022, 9:20. ? FINDINGS:? ? Surgical changes and devices:? Median sternotomy changes.? Valvuloplasty right. ? Lungs and pleura:? Mild bilateral interstitial thickening and thickening of the right fissures.? Slight opacity at the right lung base.? No definite pleural effusions and no pneumothorax. ? Mediastinum:? Mild to moderate cardiomegaly, similar compared to prior.? Slight cephalization of central vessels. ? Bones and chest wall:? No suspicious bony lesions.? Overlying soft tissues appear unremarkable.? Severe right shoulder AC joint degeneration. ? IMPRESSION:? ? 1. Slight cephalization of central vessels and diffuse interstitial thickening may indicate edema or interstitial pneumonia. ? 2. Slight opacity at the right lung base may be pulmonary edema or infection. ? 3. Mild cardiomegaly with postsurgical changes.? Extremity x-ray #1: Radiologist's Impression: PROCEDURE:? XR FOOT RT MIN 3V ? INDICATIONS:? red and swelling ? TECHNIQUE:? Three views of the foot were acquired.? ? COMPARISON:? [facility], , FOOT 3V LEFT, 01/15/2007, 15:08. ? FINDINGS:? ? Bones:? No acute fractures.? Hammertoe deformities two through five.? There are severe, chronic appearing juxta-articular cystic changes, spurring, and joint space loss at the 1st MTP joint.? Along the medial side of the 1st metatarsal, these could be seen as erosive changes.? Possible subtle juxta-articular erosive change seen at the 2nd middle phalanx base.? No suspicious periostitis. ? Soft tissues:? No tibiotalar joint effusion.? Achilles tendon appears normal.? Heavy peripheral vascular calcification.? No soft tissue gas. ? ? IMPRESSION:? ? 1. Severe chronic appearing changes at the 1st MTP joint suspicious for a chronic inflammatory arthropathy such as gout or erosive osteoarthritis. ? 2. Questionable juxta-articular erosion at the 2nd middle phalanx but no other changes in the digits. ECG Data Attestation: I personally reviewed and interpreted this ECG as follows: Interpretation: Sinus rhythm Ventricular rate of 88 First-degree AV block [place] interval 226 milliseconds Normal QRS QTC 486 Occasional PVC MDM Narrative Medical decision making narrative: Patient does have a history of heart failure and his BNP is elevated and he is having some shortness of breath on exertion. He does not take his Lasix on a regular basis because he does not like the way that it makes him urinate although he does take it when he feels like he is becoming fluid overloaded or short of breath. I talked with him about this. I advised that he should be taking it especially right now because of the way that he presents. He states he does have this medication at home and will start taking it when he returns home. He does have redness to the lateral aspect of his right foot. The x-ray shows no signs of fracture. He has been on antibiotics without any improvement and I have low suspicion this is cellulitis. Is anticoagulated. His INR is 3. I have low suspicion for fracture. He states that if this discomfort was in his big toe he would say that it is gout. He has been taking his allopurinol which he normally does when he gets a gout attack and it has not been helping. He states he does not take this medication on a regular basis like he should. Plan will be is to put him on steroids. Because he is on Coumadin we will avoid anti-inflammatories. Patient does not require admission to the hospital. Will discharge patient home with return precautions. He expressed understanding Discharge Plan Departure Patient Disposition: Home Clinical Impression: Gout Instructions: Gout (Alternative Therapy), DI for Gout Activity Restrictions/Additional Instructions: I recommend that you continue to take all of your medications as directed to include taking your furosemide/Lasix as directed. Use the steroids as directed. Return to the emergency department for new or worsening symptoms. Prescriptions: New prednisone 20 mg tablet 40 mg PO DAILY 6 Days Qty: 12 0RF No Action cephalexin 500 mg capsule 500 mg PO QID 7 Days Qty: 28 0RF amlodipine 5 mg tablet See Rx Instructions .ROUTE .COMPLEX Qty: 90 3RF Dose Instruction: take 1 tablet by mouth every morning Rx Instructions: take 1 tablet by mouth every morning terazosin 2 mg capsule See Rx Instructions .ROUTE .COMPLEX Qty: 180 3RF Dose Instruction: TAKE TWO CAPSULES (4MG) BY MOUTH ONCE DAILY AT BEDTIME Rx Instructions: TAKE TWO CAPSULES (4MG) BY MOUTH ONCE DAILY AT BEDTIME albuterol sulfate 90 mcg/actuation HFA aerosol inhaler 2 puff inhalation Q6H PRN (Reason: shortness of breath or wheezing) Qty: 8.5 3RF atorvastatin 80 mg tablet See Rx Instructions .ROUTE .COMPLEX Qty: 90 3RF Dose Instruction: TAKE ONE TABLET BY MOUTH ONCE DAILY Rx Instructions: TAKE ONE TABLET BY MOUTH ONCE DAILY amitriptyline 50 mg tablet See Rx Instructions .ROUTE .COMPLEX Qty: 60 5RF Hold Instructions: ran out of medication Dose Instruction: TAKE 1 TO 2 TABLETS BY MOUTH ONCE DAILY AT BEDTIME NEEDED FOR INSOMNIA Rx Instructions: TAKE 1 TO 2 TABLETS BY MOUTH ONCE DAILY AT BEDTIME NEEDED FOR INSOMNIA warfarin 2.5 mg tablet See Rx Instructions .ROUTE .COMPLEX Qty: 100 0RF Dose Instruction: TAKE 1 TABLET (2.5MG) BY MOUTH ON MONDAY AND MONDAY AND TAKE 1 AND 1/2 TABLETS (3.75MG) ALL OTHER DAYS, OR DIRECTED. Rx Instructions: TAKE 1 TABLET (2.5MG) BY MOUTH ON MONDAY AND MONDAY AND TAKE 1 AND 1/2 TABLETS (3.75MG) ALL OTHER DAYS, OR DIRECTED. pramipexole 0.125 mg tablet See Rx Instructions .ROUTE .COMPLEX Qty: 60 3RF Dose Instruction: TAKE ONE TABLET BY MOUTH ONCE DAILY AT BEDTIME NEEDED FOR RESTLESS LEG SYNDROME Rx Instructions: TAKE ONE TABLET BY MOUTH ONCE DAILY AT BEDTIME NEEDED FOR RESTLESS LEG SYNDROME hydrocodone-acetaminophen 5-325 mg tablet 2 tab PO Q6H PRN (Reason: pain) Qty: 120 0RF duloxetine [Cymbalta] 60 mg capsule,delayed release(DR/EC) 60 mg PO DAILY Qty: 60 0RF ropinirole 0.5 mg tablet 0.5 mg PO BEDTIME Qty: 60 0RF Rx Instructions: administer 1-3 hours before bedtime. May increase to two tabs nightly after 3 days furosemide [Lasix] 20 mg tablet 20 mg PO DAILY Qty: 60 0RF potassium chloride 10 mEq tablet extended release 10 meq PO DAILY Qty: 60 0RF Referrals: Erik Azul MD [Primary Care Provider] - Stand Alone Forms: Patient Portal/API
--- NOTE | 2023-03-08 18:34 | DI.RAD.S_ITS ---
PROCEDURE: XR FOOT RT MIN 3V INDICATIONS: red and swelling TECHNIQUE: Three views of the foot were acquired. COMPARISON: [facility], , FOOT 3V LEFT, 01/15/2007, 15:08. FINDINGS: Bones: No acute fractures. Hammertoe deformities two through five. There are severe, chronic appearing juxta-articular cystic changes, spurring, and joint space loss at the 1st MTP joint. Along the medial side of the 1st metatarsal, these could be seen as erosive changes. Possible subtle juxta-articular erosive change seen at the 2nd middle phalanx base. No suspicious periostitis. Soft tissues: No tibiotalar joint effusion. Achilles tendon appears normal. Heavy peripheral vascular calcification. No soft tissue gas. IMPRESSION: 1. Severe chronic appearing changes at the 1st MTP joint suspicious for a chronic inflammatory arthropathy such as gout or erosive osteoarthritis. 2. Questionable juxta-articular erosion at the 2nd middle phalanx but no other changes in the digits. Dictated by: Siri Nazario M.D. on 03/08/2023 at 19:06 Approved by: Siri Nazario M.D. on 03/08/2023 at 19:11
[2023-03-08 18:47] LABS: Uric Acid 8.5 mg/dL (3.5-8.5)
[2023-03-08] MEDS: predniSONE 20 MG TABLET 40 MG PO (20:26)
== END 2023-03-08 20:38 | disposition home or self-care (01) ==
PROVIDERS: Emergency Medicine; Emergency Provider Emergency Medicine; Family Provider Family Medicine; PCP Family Medicine
DX: M10.9 Gout, unspecified (principal); R06.02 Shortness of breath; Z79.899 Other long term (current) drug therapy; Z79.01 Long term (current) use of anticoagulants
CPT/HCPCS: 36415; 71045; 73630; 80053; 81003; 83605; 83880; 84484; 84550; 85025; 85610; 93005; 99284